=== PATIENT | female | born 1955 | race Caucasian/White ===

== ENCOUNTER 2025-02-10 12:21 | Inpatient (IN) ==
--- NOTE | 2025-02-10 12:45 | Emergency Department Note ---
Impression & Plan MARY (acute kidney injury), DVT (deep venous thrombosis), Hypokalemia, Hypomagnesemia, Hypocalcemia ED Provider Note CHIEF COMPLAINT: Fall HISTORY OF PRESENTING ILLNESS: The patient is a pleasant, 69-year-old female who arrives to the emergency department with her family member for evaluation of injuries from a ground-level fall last Thursday. Patient was seen at [facility], and diagnosed with hypokalemia however discharged after IV and oral potassium. Patient states she has pain to the right leg. She states she has bruising on the right thigh. She reports she is currently unable to bear weight, and she also feels weak. Patient reports in October she had 40 cm of her small bowel removed, and is now having a difficult time keeping her weight up. She reports she has been taking [id number] potassium supplements, however the pills are still whole when she notices them in her stool. She reports no chest pain, shortness of breath, fever, or abdominal pain. She denies head strike from the fall. She reports no anticoagulant use. REVIEW OF SYSTEMS: See HPI for pertinent positives and pertinent negatives. ALLERGIES: See below MEDICATIONS: See below PAST MEDICAL HISTORY: See below PHYSICAL EXAM: VITALS: Vitals are noted on the nurse's note and reviewed by myself. Vital signs stable. GENERAL: 69-year-old female, in no acute distress, nondiaphoretic, well- developed well-nourished. SKIN: Ecchymosis noted to the lateral aspect of the right thigh. Tenderness to palpation. HEAD: Normocephalic atraumatic. EARS: External auditory canals clear, tympanic membranes pearly ramirez without erythema or effusion bilaterally. No hemotympanum. EYES: Pupils equal round and reactive to light and accommodation. Conjunctivae without injection, sclerae without icterus. Extraocular movements intact. No nystagmus. NECK: Supple without nuchal rigidity. Cervical spine is nontender. No JVD. HEART: Regular rate and rhythm without murmurs gallops or rubs. LUNGS: Clear to auscultation bilaterally without wheezes, rales or rhonchi. No retractions or accessory muscle use. ABDOMEN: Positive bowel sounds x 4. Soft, nontender, without masses or organomegaly. Abrams sign negative. No guarding or rebound tenderness. MUSCULOSKELETAL: Tenderness to palpation lateral aspect of right thigh, with ecchymosis noted. Tenderness to palpation over the right greater trochanter. No tenderness to palpation over the lumbar spinous process. Full ROM, right hip, right knee. Positive right SLR. Sensation intact to dull and sharp. Strength 5/5. NEURO: Patient was alert and oriented to person place and time. No focal neurological deficits. DIFFERENTIAL DIAGNOSIS: Infection, dehydration, metabolic abnormality, hypo/hyperglycemia, electrolyte disturbance, anemia, hypoxia, cardiac sources, intracerebral event, toxicologic, neurologic, fracture, dislocation, as well as other pathologies. ED COURSE AND MEDICAL DECISION MAKING: HISTORY FROM INDEPENDENT HISTORIAN: Family member at bedside serving as secondary historian. MEDICATIONS GIVEN: NSS, infusion to 50 mL/h. Potassium chloride IVPB 10 mEq x 2, magnesium sulfate 1 g IVPB. MONITOR: Continuous cardiac nurse specialist: Order was placed for continuous cardiac nurse specialist. Patient was placed on the cardiac nurse specialist and continuous pulse ox. Patient was noted to be in normal sinus rhythm at an initial rate of 95 bpm per my interpretation. EKG: EKG was interpreted by myself as NSR at a rate of 74bpm with no acute signs of ischemia present. No previous for comparison. INTERPRETATION OF LABS: I interpreted the labs with full lab results as below in the lab section of this note. Pertinent lab results discussed in the MDM section below. INTERPRETATION OF IMAGING: Imaging studies were interpreted by myself and read by radiology as per the imaging section of this note. EXTERNAL RECORDS REVIEWED: [facility] visit CHRONIC MEDICAL/SOCIAL CONDITIONS AFFECTING CARE: Bowel resection, Crohn's disease, chronic hypokalemia. MDM SUMMARY: The patient is a pleasant, 69-year-old female who arrives to the emergency department for evaluation of the above-stated complaint. Saline lock was established, lab work was obtained. CBC shows no leukocytosis, with new anemia present. PT slightly elevated 12.4, INR 1.2. Potassium 2.9, BUN 26, creatinine 1.64, consistent with MARY. Hypocalcemia 7.3. Hypomagnesemia 1.5. Hip and pelvis x-ray imaging was obtained which per my interpretation shows no acute fracture. Lumbar spine x-ray imaging was obtained which shows mild scoliosis, osteopenic bones, most pronounced at L4-L5, with no acute fractures or subluxation. Ultrasound imaging of the right lower extremity was obtained to rule out DVT, which does show a likely acute DVT of the peroneal vein. Patient was provided continuous infusion of to 250 mL/h of normal saline, with 2 x 10 mEq potassium IVPB, as well as 1 g IVPB magnesium. Due to the patient's electrolyte abnormality, as well as acute DVT and inability to tolerate p.o. potassium, patient will require admission to the hospitalist services. Anticoagulation was deferred to the hospitalist. Patient was admitted to Dr. Singletary, from the [facility] hospitalist service. Please refer to her documentation for further patient workup and care. DIAGNOSIS: Hypokalemia, DVT, MARY, hypocalcemia, hypomagnesemia. The patient's case was discussed with Dr. Rodriguez, who agreed with my evaluation and treatment plan. The chart was completed utilizing [employer] voice recognition software. Grammatical errors, random word insertions, pronoun errors, and incomplete sentences are an occasional consequence of this system due to software limitations, ambient noise, and hardware issues. Any formal questions or concerns about the content, text, or information contained within the body of this dictation should be directly addressed to the provider for clarification. Past Med/Surg History Problem List (Updated 02/11/25 @ 18:10 by SIMRAN Irving) Hypocalcemia (Acute) Hypomagnesemia (Acute) DVT (deep venous thrombosis) (Acute) Short gut syndrome Malabsorption MARY (acute kidney injury) (Acute) Chronic malnutrition DVT (deep venous thrombosis) Dizziness Encounter for pre-operative examination Crohn's disease (Chronic) Abdominal pain (Acute) Diarrhea (Acute) History of Crohn's disease (Acute) Hypokalemia (Acute) Medical History Stage 3a chronic kidney disease (CKD) Barretts esophagus History of palpitations beginning 12/2021, chest pain, went to ER, did EKG, and there were no findings>attributed to her gallbladder History of COVID-19 end 11/2021, had test thru work; stuffy nose>resolved. History of anesthesia problem medications that are meant to make me tired/sleepy work opposite, they "make me wired" Hyperlipemia CD (Crohn's disease) Hypertension Surgical History Hx of laparoscopy w/LT oophorectomy Hx of colectomy in the late , had 10" bowel removed due to Crohn's History of esophagogastroduodenoscopy (EGD) Hx of colonoscopy Hx of tonsillectomy Social History Smoking Status: Current every day smoker Tobacco Type: Cigarettes Cigarettes Per Day: half pack; Second Hand Exposure: No; Do You Dip or Chew Tobacco: No; Hx Alcohol Use: No Hx Substance Use: No Preferred Language: Telugu Communication Ability: 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 Beliefs That Will Affect Care: None Current Living Situation: Spouse Current Living Situation Comment: home with , one story home Other Information That Helps Us Care for You: No Feels Safe at Home: Yes Safety Concerns: Feels Safe At This Time Assistive Devices: Denture - Upper, Glasses and Hearing Aid - Bilateral Allergies Allergies Allergy/AdvReac Type Severity Reaction Status Date / Time hydromorphone AdvReac Intermediate shaky, Unverified 02/10/25 15:01 cold sweats, "loopy-like" Home Meds Home Medications Medication Instructions Recorded Confirmed multivitamin with minerals 1 tab PO QAM 02/05/22 02/10/25 (Multiple Vitamin-Minerals tablet) pantoprazole 40 mg tablet,delayed 40 mg PO QAM 02/05/22 02/10/25 release (Protonix) potassium chloride 20 mEq 20 meq PO QAM 02/05/22 02/10/25 tablet,extended release(part/cryst) aspirin 325 mg tablet 325 mg PO UD 02/10/25 02/10/25 potassium chloride 20 mEq/15 mL 0 meq PO UD 02/10/25 02/10/25 oral liquid rosuvastatin 20 mg tablet 20 mg PO DAILY 02/10/25 02/10/25 Results & Data (ED) Vital Signs Vital Signs - 24 hr 02/10/25 12:34 Temperature 36.6 C Temperature Source Temporal Artery Scan Pulse Rate 95 H Respiratory Rate 18 Respiratory Effort / Characteristics Non-Labored Spontaneous Respiratory Depth Normal Respiratory Pattern Regular Blood Pressure 137/76 Blood Pressure Mean 96 Pulse Oximetry 97 Oxygen Delivery Method Room Air Sepsis Recent Fever Within 48 Hours No Sepsis New/Unexplained Change in Mental Status N/A Sepsis Action Taken by Nursing No Action Required Home Medications Current Medication List: was personally reviewed by me Laboratory Data Attestation: I reviewed the patient's lab results. 02/11/25 02:55 02/11/25 02:55 Lab Results 02/10/25 02/10/25 Range/Units 13:14 14:47 WBC 6.76 (4.8-10.8) K/ul RBC 3.57 L (4.20-5.40) M/uL Hgb 10.4 L (12.0-16.0) g/dl POC Hgb 12.2 (12.0-16.0) g/dl Hct 31.3 L (37.0-47.0) % POC Hct 36 L (37-47) % MCV 87.7 (80.0-100.0) fL MCH 29.1 (25.0-34.0) pg MCHC 33.2 (32.0-36.0) g/dL RDW Std Deviation 55.5 H (36.4-46.3) fL RDW Coeff of Bell 17.3 H (11.5-14.5) % Plt Count 257 (130-400) K/uL MPV 9.1 L (9.4-12.4) fL Immature Gran % (Auto) 0.4 % Neut % (Auto) 67.6 % Lymph % (Auto) 23.2 % [place] % (Auto) 7.5 % Eos % (Auto) 0.7 % Baso % (Auto) 0.6 % Neut # (Auto) 4.56 (1.40-6.50) K/uL Lymph # (Auto) 1.57 (1.20-3.40) K/uL [place] # (Auto) 0.51 (0.11-0.59) K/uL Eos # (Auto) 0.05 (0.00-0.50) K/uL Baso # (Auto) 0.04 (0.00-0.20) K/uL Immature Gran # (Auto) 0.03 (0.01-0.20) K/uL PT 12.4 H (9.0-12.0) Seconds INR 1.2 H (0.9-1.1) APTT 31 (21-31) Seconds PTT Ratio 1.1 POC Sodium 136 (135-144) mmol/L Sodium 137 (136-145) mmol/L POC Potassium 2.9 L (3.3-5.0) mmol/L Potassium 3.2 L (3.5-5.1) mmol/L POC Chloride 106 (101-112) mmol/L Chloride 109 H (98-107) mmol/L Carbon Dioxide 20 L (21-32) mmol/L POC Total CO2 18 L (24-31) mmol/L Anion Gap 8 (3-11) POC Anion Gap 16.0 (16-25) mmol/L POC BUN 24 H (7-18) mg/dl BUN 26 H (6-23) mg/dl Creatinine 1.64 H (0.6-1.2) mg/dl POC Creatinine 2.0 H (0.6-1.3) mg/dl Est Cr Clr Drug Dosing Not Reportable eGFR 34.10 BUN/Creatinine Ratio 15.9 (10-20) Glucose 79 (70-99(Fasting)) mg/dl POC Glucose (other) 98 (70-99) mg/dl Calcium 7.3 L (8.6-10.3) mg/dl POC Ioniz Calcium Karly 1.12 (1.12-1.32) mmol/l Magnesium 1.5 L (1.7-2.4) mg/dl Total Bilirubin 0.2 (0.2-1.0) mg/dl AST 24 (13-39) U/L ALT 34 (7-52) U/L Alkaline Phosphatase 163 H (34-104) U/L Total Protein 4.6 L (6.0-8.3) gm/dl Albumin 1.7 L (3.4-5.0) gm/dl Globulin 2.9 (2.5-4.0) gm/dl Albumin/Globulin Ratio 0.6 L (0.9-2) Administered Medications Enoxaparin Sodium (Enoxaparin Inj 60 Mg/0.6 Ml Syr) 50 mg SQ Q12H JAMAL Stop: 03/13/25 07:59 Last Admin: 02/11/25 11:07 Dose: Not Given Documented By: PEDIATRIC ASSISTANT Loperamide HCl (Loperamide Liquid 120 Ml Bottle) 2 mg PO BID JAMAL Stop: 03/13/25 11:44 Last Admin: 02/11/25 13:40 Dose: 2 mg Documented By: MONE Multivitamins/Minerals (Cerovite Adv Formula Tab) 1 tab PO QAM JAMAL Stop: 03/13/25 08:59 Last Admin: 02/11/25 10:37 Dose: 1 tab Documented By: DAMIAN Rosuvastatin Calcium (Rosuvastatin Calcium 20 Mg Tab) 20 mg PO DAILY JAMAL Stop: 03/13/25 08:59 Last Admin: 02/11/25 11:07 Dose: Not Given Documented By: DAMIAN Discontinued Medications Aspirin (Aspirin 81 Mg Chew) 162 mg PO NOW STA Stop: 02/10/25 22:47 Last Admin: 02/11/25 00:18 Dose: 162 mg Documented By: GOPI Aspirin (Aspirin 81 Mg Chew) 162 mg PO ONCE ONE Stop: 02/11/25 10:45 Last Admin: 02/11/25 10:56 Dose: 162 mg Documented By: DAMIAN Heparin Sodium (Porcine) (Heparin Sod (Porcine) 1000 Unit/Ml) 2,000 units IV NOW ONE Stop: 02/11/25 04:46 Last Admin: 02/11/25 04:55 Dose: 2,000 units Documented By: GOPI Co-signed By: MADELYN Heparin Sodium/Dextrose (Heparin Iv Adult Wt-Based Low-Dose *No* Initial Bolus Protocol) 1 each IV ONE STA; Protocol Stop: 02/10/25 17:18 Last Admin: 02/10/25 20:36 Dose: 1 each Documented By: GOPI Potassium Chloride (K Pascual / Wtr) 10 meq in 100 mls @ 100 mls/hr IV Q1H JAMAL Stop: 02/10/25 15:29 Last Infusion: 02/10/25 17:17 Dose: Infused Documented By: Admin: 02/10/25 15:32 Dose: 100 mls/hr Documented By: Infusion: 02/10/25 15:29 Dose: Infused Documented By: Admin: 02/10/25 14:14 Dose: 100 mls/hr Documented By: XENA Sodium Chloride (Nss) 1,000 mls @ 250 mls/hr IV .Q4H JAMAL Stop: 02/13/25 13:29 Last Admin: 02/11/25 07:56 Dose: Not Given Documented By: Infusion: 02/11/25 07:56 Dose: Infused Documented By: Admin: 02/11/25 04:38 Dose: 250 mls/hr Documented By: Infusion: 02/11/25 04:18 Dose: Infused Documented By: Admin: 02/11/25 00:18 Dose: 250 mls/hr Documented By: Infusion: 02/11/25 00:18 Dose: Infused Documented By: Admin: 02/10/25 20:19 Dose: 250 mls/hr Documented By: Infusion: 02/10/25 19:55 Dose: Infused Documented By: Admin: 02/10/25 14:13 Dose: 250 mls/hr Documented By: XENA Magnesium Sulfate/Dextrose (Magnesium Sulfate / D5w) 1 gm in 100 mls @ 100 mls/hr IV Q1H JAMAL Stop: 02/10/25 17:40 Last Admin: 02/10/25 22:12 Dose: Not Given Documented By: Infusion: 02/10/25 19:44 Dose: Infused Documented By: Admin: 02/10/25 17:44 Dose: 100 mls/hr Documented By: NICKI Heparin Sodium/Dextrose (Heparin 58023 Unit/500 Ml D5w) 25,000 units in 500 mls @ 14 mls/hr IV .Q24H JAMAL; Protocol Stop: 03/12/25 17:44 Last Titration: 02/11/25 07:57 Dose: Infused Documented By: MONE Co-signed By: anitra Titration: 02/11/25 07:09 Dose: 700 units/hr, 14 mls/hr Documented By: GOPI Co-signed By: MONE Titration: 02/11/25 04:55 Dose: 700 units/hr, 14 mls/hr Documented By: GOPI Co-signed By: MADELYN Admin: 02/10/25 20:34 Dose: 600 units/hr, 12 mls/hr Documented By: GOPI Co-signed By: MADELYN Potassium Chloride (K Pascual / Wtr) 10 meq in 100 mls @ 100 mls/hr IV Q1H JAMAL Stop: 02/10/25 19:29 Last Infusion: 02/10/25 21:02 Dose: Infused Documented By: Admin: 02/10/25 19:58 Dose: 100 mls/hr Documented By: Infusion: 02/10/25 19:55 Dose: Infused Documented By: Admin: 02/10/25 17:45 Dose: 100 mls/hr Documented By: NICKI Magnesium Sulfate/Dextrose (Magnesium Sulfate / D5w) 1 gm in 100 mls @ 100 mls/hr IV Q1H JAMAL Stop: 02/10/25 22:44 Last Admin: 02/10/25 22:12 Dose: Not Given Documented By: Infusion: 02/10/25 22:12 Dose: Infused Documented By: Admin: 02/10/25 21:06 Dose: 100 mls/hr Documented By: GOPI Thiamine HCl 100 mg/ Syringe 10 mls @ 2 mls/min IV NOW STA Stop: 02/11/25 11:38 Last Admin: 02/11/25 13:41 Dose: 2 mls/min Documented By: MONE Oxycodone HCl (Oxycodone Hcl Ir 5 Mg Tab (Immediate Release)) 5 mg PO NOW STA Stop: 02/10/25 22:22 Last Admin: 02/11/25 00:02 Dose: Not Given Documented By: GOPI Pantoprazole Sodium (Pantoprazole 40 Mg Tab) 40 mg PO QAM JAMAL Stop: 03/13/25 08:59 Last Admin: 02/11/25 10:38 Dose: 40 mg Documented By: DAMIAN Discharge Plan Visit Data Chief Complaint: Leg Injury/Pain Stated Complaint: RT LEG NUMB, RECENT FALL, LIGHTHEADED ED Provider: Dia Rodriguez ED Midlevel Provider: Caty Patel Discharge Problem: MARY (acute kidney injury), DVT (deep venous thrombosis), Hypokalemia, Hypomagnesemia, Hypocalcemia Patient Disposition: Admitted As Inpatient Condition: Fair Discharge Instructions Interventions: ED Discharge Assessment Last Done: 02/10/25 18:44
--- NOTE | 2025-02-10 13:03 | Emergency Department Note ---
ED Visit Note I was consulted by the Advanced Practice Provider, SIMRAN Linares. I performed a substantive portion of the visit. This includes aspects of: History: Patient is a 69-year-old female presenting with right leg pain. She fell 6 days ago and landed on her right thigh. She states that this morning she has been unable to bear weight. She is not clear. Hospital yesterday secondary to shortness of breath and had a VQ scan which was negative for PE. She is complaining of pain in the right leg. MDM: - Laboratory workup interpreted by myself showed normal WBC; hypokalemia (K 3.2); hypomagnesemia (Mg 1.5); MARY (Cr 1.64) - Xray lumbar spine negative for acute pathology other than scoliosis and degenerative changes. - Xray right hip and pelvis views negative for acute fracture. - US RLE showed acute DVT of the peroneal vein. - Patient given IV potassium and IV magnesium for electrolyte replacements in the ER. - Patient to be admitted to medicine service for further evaluation and management
--- NOTE | 2025-02-10 13:54 | XRay Report ---
XR lumbar spine min 4V routine CLINICAL HISTORY: Pain status post trauma COMPARISON STUDY: No previous studies for comparison. FINDINGS: There is a mild scoliosis. Bones are osteopenic. No acute fractures are visualized. There a re degenerative changes with marked disc space narrowing at the L4-5 level. There is lower lumbar fac et joint arthropathy. Note is made of atherosclerotic aortoiliac calcifications. There is no patholog ic bowel dilatation. There are surgical clips within the right upper quadrant consistent with a prior cholecystectomy. IMPRESSION: Scoliosis and degenerative changes most pronounced at the L4-5 level. No acute fractures or subluxations identified ACT 112: Negative or not required by law. Electronically signed by: Stepan Chow M.D. 02/10/2025 1:52 PM
[2025-02-10] MEDS: SODIUM CHLORIDE 0.9% 1,000 ML IV SCH (14:13)
[2025-02-10] MEDS: POTASSIUM CHLORIDE / WTR 10 MEQ/100 ML PLCT IV SCH ×2 (14:14→17:45)
--- NOTE | 2025-02-10 14:16 | XRay Report ---
XR hip RT 2V w pelvis HISTORY: 69 years-old Female fall acute pelvic pain status post fall COMPARISON: CT abdomen and pelvis 11/28/2024 TECHNIQUE: AP view the pelvis with 2 views of the right hip FINDINGS: Mild osteoarthritis of the hips. No acute fracture, dislocation or avascular necrosis. Arterial calci fications noted. IMPRESSION: No acute fracture. ACT 112: Negative or not required by law. The above report was generated using voice recognition software. It may contain grammatical, syntax o r spelling errors. Electronically signed by: Dominic Thompson M.D. 02/10/2025 2:15 PM
--- NOTE | 2025-02-10 14:28 | Ultrasound Report ---
US venous doppler LE RT HISTORY: 69 years-old Female r/o dvt acute pain and swelling of the right lower leg COMPARISON: None TECHNIQUE: Multiple real-time sonographic images of the right lower extremity deep venous structures were obtained assessing grayscale appearance, color and spectral flow. FINDINGS: Thrombus noted within one of the duplicated peroneal veins which is occlusive and extends for length of at least 6 cm. No additional deep or superficial venous thrombi identified. IMPRESSION: Likely acute DVT of the peroneal vein. ACT 112: Negative or not required by law. The above report was generated using voice recognition software. It may contain grammatical, syntax o r spelling errors. Electronically signed by: Dominic Thompson M.D. 02/10/2025 2:26 PM
--- NOTE | 2025-02-10 15:07 | History & Physical Report ---
Date of Service February 10, 2025 Assessment & Plan (1) Dizziness: Plan: Patient is a 69 year old F with a past medical history of Crohn's s/p bowel resection 10/2024 w/ 40 cm bowel removed, nutritional deficiency, hypokalemia, presenting with right leg pain. Symptoms began this morning with leg numbness. Patient has had multiple ground level falls recently, and is unaware of why she is falling. Denies dizziness and chest pain prior to the fall. Patient went to [facility] yesterday for dizziness and found to have hypokalemia, replaced with IV supplementation and d/c to home with oral supplementation. Unable to tolerate oral K+ supplemental given. Negative CT imaging at [facility] yesterday for dizziness workup. Since falling 1 week ago having parathesias throughout the right leg. Dizziness, unknown etiology * Admit to [facility] for additional workup * Dizziness with falls, patient unaware of why she falls, no chest pain * EKG showing NSR, vent rate 74 bpm, QTc 412 w/ possible septal infarct per report * Electrolyte imbalances noted; see below * Reportedly has history aortic stenosis and was started on statin w/ no cardiology followup; Will obtain Echo for r/o cardiac causes of symptoms- pending * Tele monitoring * Anemia workup pending->Hgb 10.4 with no active bleeding * Has history of losartan treatment for hypertension and has been placed on hold for hypotension; follows [facility] pharmacy for periodic medication review per patient's daughter; BP 120's /70's * PT consult when able * Discharge planning: Anticipate d/c to home with family support #Electrolyte imbalances * Hypokalemia at [facility] yesterday 2.7 w/ low mag as well; replacement given and d/c to home with oral supplement; patient w/ absorption issue with excretion of whole pill unchanged * Potassium 2.9; replaced with K-Pascual x 3; repeat labs at 9pm and in the morning * Magnesium 1.5 and replaced with 2gm Mag Sulfate; repeat labs at 9pm and in the morning * Trend labs and replace as needed #DVT * Venous doppler showing occlusive thrombus to peroneal veins extends for length of at least 6 cm * Low dose heparin drip started * Likely transition to Eliquis-> can discuss with Dr. Armijo #MARY w/ history of CKD Stage III * Baseline creatinine 1.2 prior surgery; trending up since * Creatinine 1.64 today possible relating to low oral intake * IV fluids NSS 125 ml/hr started * Will trend labs #Hyperlipidemia * Continue home statin #Chronic malnourishment * Endorses ~20 pound weight loss since bowel resection in October 2024 with possible absorption concerns; reports loose bowel movements following eating * Albumin 1.7 * Nutrition consult placed * GI consult placed for absorption concerns, history Crohn's not currently on mesalamine; has been on mesalamine in the past but excreted medication unchanged DVT Ppx: Heparin Code status: Full PCP: Dr. Griffin Dispo: Admit Patient seen in collaboration with Dr. Singletary. Please see addendum.I spent a total of 70 minutes coordinating, documenting and providing care for this patient excluding time spent in the performance of separately billed services or time spent by another provider/QHP. (2) Hypokalemia: (3) DVT (deep venous thrombosis): (4) Hyperlipemia: (5) MARY (acute kidney injury): (6) Stage 3a chronic kidney disease (CKD): (7) Chronic malnutrition: History of Present Illness Chief Complaint: Fall, leg pain Primary Care Provider: Henry Griffin MD Patient is a 69 year old F with a past medical history of Crohn's s/p bowel resection 10/2024 w/ 40 cm bowel removed, nutritional deficiency, hypokalemia, presenting with right leg pain. Symptoms began this morning with leg numbness. Patient has had multiple ground level falls recently, and is unaware of why she is falling. Denies dizziness and chest pain prior to the fall. Patient went to [facility] yesterday for dizziness and found to have hypokalemia, replaced with IV supplementation and d/c to home with oral supplementation. Unable to tolerate oral K+ supplemental given. Negative CT imaging at [facility] yesterday for dizziness workup. Since falling 1 week ago having parathesias throughout the right leg. Denies fever, chills, weight loss, weakness, headache, cognitive changes, vision/hearing changes, chest pain, SOB, swelling, difficulty breathing, urinary concerns, N/V/D, joint swelling/pain, ambulation difficulty, skin rashes, lesions, bleeding, bruising. In the emergency department, patient was hemodynamically stable with no signs of infection sepsis. NAD. Hypokalemia noted on lab workup with Potassium 2.9 and replaced with 20 meq KCL. EKG showing NSR with no evidence ST elevation, vent rate 74 bpm, QTc 412. Venous doppler showed thrombus noted within one of the duplicated peroneal veins which is occlusive and extends for length of at least 6 cm. Lumbar Spine Xray showed Scoliosis and degenerative changes most pronounced at the L4-5 level. No acute fractures or subluxations identified Patient is s/p ileoscolic resection/kono-S for symptomatic Crohn's disease. As per outside record, patient has been doing very well after surgery and progressing as expected. Patient's daughter reports low intake, 20 pound weight loss with an upcoming nutrition appointment in March. Patient is supposed to be taking mesalamine but has been excreting this medication whole. Patient's daughter is concerned for dumping syndrome. She does not have nausea or vomiting. Loose stools after each meal. Has become progressively weaker since surgery and feels this is due to malnutrition. Follows [facility]. History of hypertension and was managed on losartan prior to recent bowel resection. This was stopped after the surgery for hypotension and has not resumed. BP stable here. History obtained primarily from the patient and via hospitalization record. The patient's family was at the bedside and assisted with past medical history and history of present illness. External chart review obtained from [facility]. Allergies Allergy/AdvReac Type Severity Reaction Status Date / Time hydromorphone AdvReac Intermediate shaky, Unverified 02/10/25 15:01 cold sweats, "loopy-like" Home Medications Medication Instructions Recorded Confirmed Type multivitamin with minerals 1 tab PO QAM 02/05/22 02/10/25 History (Multiple Vitamin-Minerals tablet) pantoprazole 40 mg tablet,delayed 40 mg PO QAM 02/05/22 02/10/25 History release (Protonix) potassium chloride 20 mEq 20 meq PO QAM 02/05/22 02/10/25 History tablet,extended release(part/cryst) aspirin 325 mg tablet 325 mg PO UD 02/10/25 02/10/25 History potassium chloride 20 mEq/15 mL 0 meq PO UD 02/10/25 02/10/25 History oral liquid rosuvastatin 20 mg tablet 20 mg PO DAILY 02/10/25 02/10/25 History Past Med/Surg History Problem List (Updated 02/10/25 @ 19:53 by SIMRAN Gonzalez) MARY (acute kidney injury) Chronic malnutrition DVT (deep venous thrombosis) Dizziness Encounter for pre-operative examination Crohn's disease (Chronic) Abdominal pain (Acute) Diarrhea (Acute) History of Crohn's disease (Acute) Hypokalemia (Acute) Medical History (Updated 02/10/25 @ 19:53 by SIMRAN Gonzalez) Stage 3a chronic kidney disease (CKD) Barretts esophagus History of palpitations beginning 12/2021, chest pain, went to ER, did EKG, and there were no findings>attributed to her gallbladder History of COVID-19 end 11/2021, had test thru work; stuffy nose>resolved. History of anesthesia problem medications that are meant to make me tired/sleepy work opposite, they "make me wired" Hyperlipemia CD (Crohn's disease) Hypertension Surgical History Hx of laparoscopy w/LT oophorectomy Hx of colectomy in the late , had 10" bowel removed due to Crohn's History of esophagogastroduodenoscopy (EGD) Hx of colonoscopy Hx of tonsillectomy Social History Smoking Status: Current every day smoker Tobacco Type: Cigarettes Cigarettes Per Day: 5; Second Hand Exposure: No; Do You Dip or Chew Tobacco: No; Hx Alcohol Use: Yes Alcohol type: hard liquor Hx Substance Use: No Preferred Language: Libyan Communication Ability: Effective Set Up Worker Required: No Beliefs That Will Affect Care: None Current Living Situation: Spouse Feels Safe at Home: Yes Assistive Devices: Denture - Upper and Glasses Review of Systems Review of Systems: All systems reviewed & are unremarkable except as noted in HPI & below Physical Exam Physical Exam: VITALS: Reviewed. WEIGHT/BMI reviewed. GEN: Thin, well-developed, NAD. PSYCH: Good Judgment. AOx3. Normal memory, mood, and affect. HEENT -Head: NC/AT; -Eyes: PERRL, EOMI. No discharge or redn ess; -Ears: External ears are normal. -Nose: Normal nares. -Mouth and throat: MMM. Normal gums, muc farhana, palate,. Good dentition. NECK: Supple, with no masses. CV: RRR, no m/r/g. LUNGS: CTAB, no w/r/c. ABD: Soft, NT/ND, NBS, no masses or organomegaly. : N/A SKIN: Warm, well perfused. Large purple bruise to right thigh. multiple lacerations to legs. MSK: No deformities, Normal gait. EXT: No clubbing, cyanosis, or edema. NEURO: Ambulating with w/ assistance. Normal muscle strength and tone. No focal deficits. Results & Data Results & Data Vital Signs (Past 12 Hours) Vital Signs Temp Pulse Pulse Resp BP BP Pulse Ox 02/10/25 14:33 74 14 124/86 100 02/10/25 12:34 36.6 C 95 H 18 137/76 97 O2 Del Method 02/10/25 14:33 Room Air 02/10/25 12:34 Room Air Diagnostic Findings Hip/Pelvis X-Ray 02/10/25 13:01 XR hip RT 2V w pelvis HISTORY: 69 years-old Female fall acute pelvic pain status post fall COMPARISON: CT abdomen and pelvis 11/28/2024 TECHNIQUE: AP view the pelvis with 2 views of the right hip FINDINGS: Mild osteoarthritis of the hips. No acute fracture, dislocation or avascular necrosis. Arterial calcifications noted. IMPRESSION: No acute fracture. ACT 112: Negative or not required by law. The above report was generated using voice recognition software. It may contain grammatical, syntax or spelling errors. Electronically signed by: Dominic Thompson M.D. 02/10/2025 2:15 PM Lumbar Spine X-Ray 02/10/25 13:01 XR lumbar spine min 4V routine CLINICAL HISTORY: Pain status post trauma COMPARISON STUDY: No previous studies for comparison. FINDINGS: There is a mild scoliosis. Bones are osteopenic. No acute fractures are visualized. There are degenerative changes with marked disc space narrowing at the L4-5 level. There is lower lumbar facet joint arthropathy. Note is made of atherosclerotic aortoiliac calcifications. There is no pathologic bowel dilatation. There are surgical clips within the right upper quadrant consistent with a prior cholecystectomy. IMPRESSION: Scoliosis and degenerative changes most pronounced at the L4-5 level. No acute fractures or subluxations identified ACT 112: Negative or not required by law. Electronically signed by: Stepan Chow M.D. 02/10/2025 1:52 PM Venous Doppler Study 02/10/25 13:01 US venous doppler LE RT HISTORY: 69 years-old Female r/o dvt acute pain and swelling of the right lower leg COMPARISON: None TECHNIQUE: Multiple real-time sonographic images of the right lower extremity deep venous structures were obtained assessing grayscale appearance, color and spectral flow. FINDINGS: Thrombus noted within one of the duplicated peroneal veins which is occlusive and extends for length of at least 6 cm. No additional deep or superficial venous thrombi identified. IMPRESSION: Likely acute DVT of the peroneal vein. ACT 112: Negative or not required by law. The above report was generated using voice recognition software. It may contain grammatical, syntax or spelling errors. Electronically signed by: Dominic Thompson M.D. 02/10/2025 2:26 PM Supervising Physician Co-Signing Physician Notes Pt seen and examined by nd care coordinated w/ M. SIMRAN Abrams, pls refer to her note above for further detail. Pt is a 69 yo F with history of Crohn's s/p bowel resection 10/2024 w/ 40 cm bowel removed, nutritional deficiency, hypokalemia, presenting with right leg pain. Patient has had multiple ground level falls recently, and is unaware of why she is falling.Denies loss of consciousness, remembers the fall. Denies dizziness or chest pain prior to the fall but feels uncertain. In the emergency department, patient was hemodynamically stable with no signs of infection sepsis. NAD. Hypokalemia noted on lab workup with Potassium 2.9., Mag 1.5. EKG showing NSR with no evidence ST elevation, vent rate 74 bpm, QTc 412. Cr elevated at 1.6. Venous doppler showed thrombus noted within one of the duplicated peroneal veins which is occlusive and extends for length of at least 6 cm. Currently pt is lying in bed in NAD, she is awake, alert, able to provide hx, pt's daughter present at the bedside and also provides additional hx. Breath sounds decreased. heart sounds regular, abdomen soft, nontender. Ecchymosis noted over right LE thigh. Pt is moving extremities. Will replace electrolytes, provide IVF and will re-check BMP. Will cont. to closely monitor on tele, plan to obtain echo as above. Started low dose heparin iv for peroneal vein thrombus - monitor leg pain/ numbness, further can discuss poss. anticoag. w/ Dr. Armijo or heme prior to DC. Hx of Crohn's s/p surgery, malnutrition, will further consult with steak sauce maker and GI. MD Gemini
[2025-02-10 15:19] LABS: Hematocrit (blood only) 31.3 % (37.0-47.0); Hemoglobin 10.4 g/dl (12.0-16.0); Immature Granulocytes # (auto) 0.03 K/uL (0.01-0.20); Immature Granulocytes % (auto) 0.4 %; Mean Corpuscular Hemoglobin 29.1 pg (25.0-34.0); Mean Corpuscular Volume 87.7 fL (80.0-100.0); Platelet Count 257 K/uL (130-400); RDW Standard Deviation 55.5 fL (36.4-46.3); Red Blood Count 3.57 M/uL (4.20-5.40); White Blood Count 6.76 K/ul (4.8-10.8)
[2025-02-10 15:37] LABS: Alanine Aminotransferase 34 U/L (7-52); Albumin Globulin Ratio 0.6 (0.9-2); Albumin Level 1.7 gm/dl (3.4-5.0); Alkaline Phosphatase 163 U/L (34-104); Anion Gap 8 (3-11); Bilirubin,Total 0.2 mg/dl (0.2-1.0); Blood Urea Nitrogen 26 mg/dl (6-23); Calcium 7.3 mg/dl (8.6-10.3); Carbon Dioxide 20 mmol/L (21-32); Chloride 109 mmol/L (98-107); Globulin 2.9 gm/dl (2.5-4.0); Glucose 79 mg/dl (70-99(Fasting)); Magnesium 1.5 mg/dl (1.7-2.4); Potassium 3.2 mmol/L (3.5-5.1); Sodium 137 mmol/L (136-145); Total Protein 4.6 gm/dl (6.0-8.3)
[2025-02-10 15:46] LABS: INR 1.2 (0.9-1.1); Partial Thromboplastin Time 31 Seconds (21-31); Prothrombin Time 12.4 Seconds (9.0-12.0)
[2025-02-10] MEDS ORDERED: POTASSIUM CHLORIDE CRTAB 20 MEQ TABCR PO SCH (17:30)
[2025-02-10] MEDS: MAGNESIUM SULFATE / D5W 1 GM/100 ML BAG IV SCH ×2 (17:44→21:06)
[2025-02-10] MEDS ORDERED: MAGNESIUM HYDROXIDE SUSP 30 ML UDC PO PRN (18:26)
[2025-02-10] MEDS ORDERED: ALUMINUM/MAGNESIUM SUSP 30 ML UDC PO PRN (18:26)
--- NOTE | 2025-02-10 19:21 | Electrocardiogram Report ---
Test Reason : Blood Pressure : */* mmHG Vent. Rate : 74 BPM Atrial Rate : 74 BPM P-R Int : 132 ms QRS Dur : 52 ms QT Int : 372 ms P-R-T Axes : 56 39 43 degrees QTcB Int : 412 ms Normal sinus rhythm Possible Septal infarct , age undetermined Abnormal ECG When compared with ECG of 27-Aug-2014 21:47, Nonspecific T wave abnormality is no longer Present Septal infarct is now Present Confirmed by Anant Byers ([id number]) on 02/10/2025 7:20:59 PM Referred By: REFERRED SELF Confirmed By: Anant Byers
[2025-02-10] MEDS ORDERED: Nursing to Pharmacy Communication SCH (20:30)
[2025-02-10] MEDS: HEPARIN 25000 UNIT/500 ML D5W 25,000 UNITS/500 ML BAG IV SCH (20:34)
[2025-02-10] MEDS: Heparin IV Adult Wt-Based Low-Dose *NO* INITIAL Bolus Protocol IV STA (20:36)
[2025-02-10 21:11] LABS: Hematocrit (blood only) 31.0 % (37.0-47.0); Hemoglobin 10.5 g/dl (12.0-16.0); Mean Corpuscular Hemoglobin 29.7 pg (25.0-34.0); Mean Corpuscular Volume 87.8 fL (80.0-100.0); Platelet Count 239 K/uL (130-400); RDW Standard Deviation 56.2 fL (36.4-46.3); Red Blood Count 3.53 M/uL (4.20-5.40); Reticulocytes # 0.050 10^6/uL (0.020-0.100); White Blood Count 6.41 K/ul (4.8-10.8)
[2025-02-10 21:28] LABS: Anion Gap 6 (3-11); Blood Urea Nitrogen 22 mg/dl (6-23); Calcium 6.9 mg/dl (8.6-10.3); Carbon Dioxide 18 mmol/L (21-32); Chloride 113 mmol/L (98-107); Creatinine Clr Calc Pharmacy 29.9 ml/min; Glucose 88 mg/dl (70-99(Fasting)); Potassium 3.5 mmol/L (3.5-5.1); Sodium 137 mmol/L (136-145)
[2025-02-10 21:46] LABS: Iron 25 mcg/dl (35-150); Magnesium 1.8 mg/dl (1.7-2.4); Transferrin < 95 mg/dl (200-360)
[2025-02-10 21:47] LABS: Ferritin 211.2 ng/ml (8-388)
[2025-02-10 21:53] LABS: Folate (Folic Acid),Ser orPlas 9.79 ng/ml (>5.38)
[2025-02-10 21:54] LABS: Vitamin B12 399.0 pg/ml (180-914)
[2025-02-10 23:15] LABS: ALC (manual) 1.79 K/uL (1.2-3.4); ANC (manual) 4.04 K/uL (1.4-6.5); Polychromasia 1+
[2025-02-11] MEDS: ASPIRIN 81 MG CHEW PO STA (00:18)
[2025-02-11 03:14] LABS: Hematocrit (blood only) 27.1 % (37.0-47.0); Hemoglobin 9.5 g/dl (12.0-16.0); Mean Corpuscular Hemoglobin 30.5 pg (25.0-34.0); Mean Corpuscular Volume 87.1 fL (80.0-100.0); Platelet Count 227 K/uL (130-400); RDW Standard Deviation 55.9 fL (36.4-46.3); Red Blood Count 3.11 M/uL (4.20-5.40); White Blood Count 4.42 K/ul (4.8-10.8)
[2025-02-11 03:28] LABS: Anion Gap 5.0 (3-11); Blood Urea Nitrogen 19.0 mg/dl (6-23); Calcium 6.5 mg/dl (8.6-10.3); Carbon Dioxide 17.0 mmol/L (21-32); Chloride 116.0 mmol/L (98-107); Creatinine Clr Calc Pharmacy 34.6 ml/min; Glucose 69.0 mg/dl (70-99(Fasting)); Magnesium 1.9 mg/dl (1.7-2.4); Potassium 3.4 mmol/L (3.5-5.1); Sodium 138.0 mmol/L (136-145)
[2025-02-11 03:38] LABS: ANTI-Xa, UFH(UnfractionatedHep 0.18 IU/ml (0.3-0.7)
[2025-02-11] MEDS: HEPARIN SOD (PORCINE) 1000 UNIT/ML IV ONE (04:55)
[2025-02-11] MEDS ORDERED: ENOXAPARIN 1 MG/KG SC SCH (07:45)
--- NOTE | 2025-02-11 10:26 | Magnetic Resonance Report ---
Clinical History: Episode of right leg numbness. Technique: Multiple T1 and T2-weighted magnetic resonance images were obtained of the brain without gadolinium contrast Findings: There is no sign of acute or old infarction with normal-appearing diffusion weighted images. No definite focus of demyelination is seen. No definite mass lesion is seen on this noncontrast study. There is no intracranial hemorrhage or other fluid collection. No midline shift or other form of herniation is seen. There is no hydrocephalus. Normal flow-voids are seen within the arteries of the [id number]-Gfloda. The orbits appear unremarkable. There is mucosal thickening in the right sphenoid sinus. The mastoid air cells appear clear. Impression: 1. Normal-appearing brain 2. Chronic sinusitis Electronically signed by Alexandru Sibley 02-11-2025 10:26 AM
[2025-02-11] MEDS: ROSUVASTATIN CALCIUM 20 MG TAB PO SCH (10:37)
[2025-02-11] MEDS: CEROVITE ADV FORMULA TAB PO SCH (10:37)
[2025-02-11] MEDS: ASPIRIN 81 MG CHEW PO ONE (10:56)
[2025-02-11] MEDS: ENOXAPARIN INJ 60 MG/0.6 ML SYR SQ SCH (11:07)
--- NOTE | 2025-02-11 11:14 | Hospitalist Progress Note ---
Date of Service February 11, 2025 Assessment & Plan (1) Dizziness: Plan: Patient is a 69 year old F with a past medical history of Crohn's s/p bowel resection 10/2024 w/ 40 cm bowel removed, nutritional deficiency, hypokalemia, presenting with right leg pain. Symptoms began this morning with leg numbness. Patient has had multiple ground level falls recently, and is unaware of why she is falling. Denies dizziness and chest pain prior to the fall. Patient went to [facility] yesterday for dizziness and found to have hypokalemia, replaced with IV supplementation and d/c to home with oral supplementation. Unable to tolerate oral K+ supplemental given. Negative CT imaging at [facility] yesterday for dizziness workup. Since falling 1 week ago having parathesias throughout the right leg. Dizziness Right leg weakness Hypokalemia Hypomagnesemia Patient presents with recurrent falls; reports that her right leg gives out at times. CT head in [facility] acute finding Plan to obtain MRI brain obtained to rule out subacute stroke; no acute finding Obtain echocardiogram Continue telemonitoring; will benefit from Zio patch as outpatient PT OT evaluation Continue to hold antihypertensives. Replete electrolytes Acute DVT of right peroneal veinwas started on heparin; switched over to Lovenox. Plan to transition to DOAC at discharge MARY on CKD-creatinine elevated to 1.64 on admission; improved with IV hydration #Hyperlipidemia * Continue home statin #Chronic malnourishment * Endorses ~20 pound weight loss since bowel resection in October 2024 with possible absorption concerns; reports loose bowel movements following eating * Albumin 1.7 * Nutrition consult placed * GI consult placed for absorption concerns, history Crohn's not currently on mesalamine; has been on mesalamine in the past but excreted medication unchanged DVT Ppx: lovenox Code status: Full PCP: Dr. Griffin Time spent evaluating patient, direct bedside care, chart review, placing orde rs, interpretation of diagnostic studies, discussion with consultants, patient, and family members, as well as other required patient management activities is 50 minutes Please note the above document was generated using voice recognition software. It may contain grammatical, syntax or spelling errors. Any formal questions or concerns about the content, text or information contained within the body of this dictation should be directly addressed to the provider for clarification (2) Hypokalemia: (3) DVT (deep venous thrombosis): (4) Hyperlipemia: (5) MARY (acute kidney injury): (6) Stage 3a chronic kidney disease (CKD): (7) Chronic malnutrition: Admission and Anticipated Discharge Date Admission Date: February 10, 2025 Subjective Patient seen and examined at bedside. She reports weakness on her right leg; reports that it gives out when trying to walk. She denies any back pain/numbness in her tingling sensation. Review of Systems Review of Systems: All systems reviewed & are unremarkable except as noted in Subjective Physical Exam Physical Exam: Constitutional: Appears comfortable; not in distress. Respiratory: Bilateral vesicular breath sound Cardiovascular: RRR, no murmur, no edema Vessels: no JVD or carotid bruit Chest: normal inspection of chest Abdomen: normal bowel sounds, soft, nontender, no hepatosplenomegaly Musculoskeletal: no cyanosis or clubbing, extremities motor strength 5/5 Skin: no rashes, warm and dry normal turgor Neurologic: PERRL, EOMI, accommodation nl, no face palsy, no dysarthria CN's II- XI intact bilaterally. Strength in right leg 4+/ 5 Psychiatric: A+Ox3, euthymic affect Results & Data Results & Data Vital Signs (Past 12 Hours) Vital Signs Temp Pulse Resp BP Pulse Ox O2 Del Method 02/11/25 08:24 36.6 C 63 18 122/74 98 Room Air 02/11/25 04:31 36.5 C 67 16 114/57 L 98 Room Air 02/10/25 23:56 36.6 C 66 18 118/76 97 Room Air
--- NOTE | 2025-02-11 11:17 | History & Physical Report ---
Date of Service February 11, 2025 Assessment & Plan (1) Malabsorption: Plan: Patient may de be having some malabsorption. Differential includes recurrent Crohn's disease, small bowel bacterial overgrowth in this patient who has had long-term bowel obstruction. 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 Should do celiac testing for completion. With bile salt malabsorption and gastric hypersecretion in the face of previous ileal and bowel resection,there is a potential for fat malabsorption also. Patient's dietary habits and smoking are aggravating the problem. Patient should be on a specific diet which would include complex carbohydrates 60%, 20% protein and 20% fat. She should avoid sugary drinks and juices which may aggravate diarrhea. Ask dietary to assess. Patient should have her Protonix increased to twice daily to decrease gastric hypersecretion, she should be on Imodium to slow passage of intestinal contents to increase time of absorption. In regards to her hypokalemia this may improve if we slow the passage of her tablets. However in meantime I would suggest may be a liquid potassium trial. Alternatively because she could use something like Micro-K capsules which could be opened and sprinkled on her food. B12 folate and iron levels look okay. Should receive thiamine. Continue oral multivitamin. Patient should stop smoking. For oral hydration it would be superior to use something like Pedialyte daily. Gatorade potentially could aggravate diarrhea. If she is to continue a Gatorade I would mix it [id number] with water. Avoid pal as they are high in oxalate and sugars increasing the risk of further diarrhea and kidney stones. I also think we should treat her for potential small bowel bacterial overgrowth. There is no good diagnostic test for this. Start with Xifaxan 550 twice daily. At discharge she will need an alternative like Augmentin. She will not get Xifaxan approved for Crohn's disease or small bowel bacterial overgrowth. Only downside Augmentin is the potential for diarrhea. (2) CD (Crohn's disease): Plan: Patient is a very high risk of Crohn's reoccurrence related to her smoking and past history. Should have colonoscopy to evaluate whether there is active Crohn's disease both for prognostication in regard to starting medications and to rule this out as a part of the current situation. Plan to do on Thursday. (3) Short gut syndrome: Plan: Is not clear that this patient actually has short gut. By history she has had about 65 cm of small bowel removed. This should leave an adequate amount of small bowel present. Typically the small bowel length and short gut is 200 cm or less. So the patient should have 400 to 500 cc of bowel left. I would work on optimizing her bowel function. (4) Barretts esophagus: Plan: Reviewed with patient timing of last endoscopy for this Dewey's. (5) Stage 3a chronic kidney disease (CKD): Plan See above. Dietary consult. Imodium increased Protonix twice daily. Xifaxan for small bowel bacterial overgrowth colonoscopy on Thursday Admission and Anticipated Discharge Date Admission Date: February 10, 2025 History of Present Illness Chief Complaint: Chron's disease, malabsorption Primary Care Provider: Henry Griffin MD Complex GI case. History of 2 bowel resections. Most recent in October. By patient's report this was for stricturing disease. Patient continues to smoke though she states she has reduced it to 5 to 6 cigarettes/day. She has really not been on any sustained GI medication predominately related to cost. Mesalamine would not be an adequate drug to treat stricturing Crohn's disease. She had started on Humira which she took for a very short period of time I do not think she even finished loading dose and subsequently to Entyvio. Sounds like she received loading dose +2 maintenance doses. Unfortunately his medications though they can reduce inflammation will not resolve a small bowel stricture likely prompting need for operative intervention in October. Patient is also had a cholecystectomy which will contribute to increased diarrhea and potentially to some fat malabsorption in a patient with intestinal resection. Patient's had 20+ weight loss since surgery. Dietary her intake has been poor. Sound like she predominately has scrambled eggs and soups. She drinks Gatorade and Pepsi as her oral rehydration. Unfortunately both of these are fairly high in simple sugars and solutes which could aggravate diarrhea. Pepsi is also a risk for her with high oxalate content which may increase risk of kidney stones She does states she can take chicken and fish but she has been mostly sticking to a soft diet. She does have a history of acid reflux though denies true dysphagia. The patient is edentulous. She is on no antidiarrheals. She takes Protonix 1 time per day. Typically will use Protonix twice daily in patients with bowel resection with potential short gut due to gastric hypersecretion that can occur in this situation which aggravates diarrhea and reflux. Patient is having trouble tolerating potassium supplements she states she passes them whole. Typical potassium tablets are slow release and D she may pass them whole this may be improved by using Imodium. Liquid potassium or potassium such as Micro-K sprinkled on the food. She has had no follow-up endoscopy since her surgery. Typically in this situation a colonoscopy 3 to 6 months post surgery is recommended to evaluate for recurrent disease Patient also complains of pain in the right lower quadrant thigh area with numbness and maybe some weakness. This is highly suspicious for femoral nerve injury. This can be a result of pelvic surgery. Suggest MRI for evaluation. Allergies Allergy/AdvReac Type Severity Reaction Status Date / Time hydromorphone AdvReac Intermediate shaky, Unverified 02/10/25 15:01 cold sweats, "loopy-like" Home Medications Medication Instructions Recorded Confirmed Type multivitamin with minerals 1 tab PO QAM 02/05/22 02/10/25 History (Multiple Vitamin-Minerals tablet) pantoprazole 40 mg tablet,delayed 40 mg PO QAM 02/05/22 02/10/25 History release (Protonix) potassium chloride 20 mEq 20 meq PO QAM 02/05/22 02/10/25 History tablet,extended release(part/cryst) aspirin 325 mg tablet 325 mg PO UD 02/10/25 02/10/25 History potassium chloride 20 mEq/15 mL 0 meq PO UD 02/10/25 02/10/25 History oral liquid rosuvastatin 20 mg tablet 20 mg PO DAILY 02/10/25 02/10/25 History Past Med/Surg History Problem List (Updated 02/11/25 @ 11:21 by Babak Mccurdy MD) Short gut syndrome Malabsorption MARY (acute kidney injury) Chronic malnutrition DVT (deep venous thrombosis) Dizziness Encounter for pre-operative examination Crohn's disease (Chronic) Abdominal pain (Acute) Diarrhea (Acute) History of Crohn's disease (Acute) Hypokalemia (Acute) Medical History (Updated 02/11/25 @ 11:21 by Babak Mccurdy MD) Stage 3a chronic kidney disease (CKD) Barretts esophagus History of palpitations beginning 12/2021, chest pain, went to ER, did EKG, and there were no findings>attributed to her gallbladder History of COVID-19 end 11/2021, had test thru work; stuffy nose>resolved. History of anesthesia problem medications that are meant to make me tired/sleepy work opposite, they "make me wired" Hyperlipemia CD (Crohn's disease) Hypertension Surgical History Hx of laparoscopy w/LT oophorectomy Hx of colectomy in the late , had 10" bowel removed due to Crohn's History of esophagogastroduodenoscopy (EGD) Hx of colonoscopy Hx of tonsillectomy Social History Smoking Status: Current every day smoker Tobacco Type: Cigarettes Cigarettes Per Day: half pack; Second Hand Exposure: No; Do You Dip or Chew Tobacco: No; Hx Alcohol Use: No Hx Substance Use: No Preferred Language: Namibian Communication Ability: Effective Still Cleaner Required: No Beliefs That Will Affect Care: None Current Living Situation: Spouse Current Living Situation Comment: home with , one story home Other Information That Helps Us Care for You: No Feels Safe at Home: Yes Safety Concerns: Feels Safe At This Time Assistive Devices: Denture - Upper, Glasses and Hearing Aid - Bilateral Review of Systems Weight loss is mention. Denies fevers chills night sweats chest pain. Frequent falls Respiratory chronic cough no change. Cardiovascular no exertional chest pain GI as mentioned MSK hip and thigh pain. Recent fall. 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 Frequent coughs during interview. Alert and orientated. So-so historian Eyes reveal no jaundice Chest coarse breath sound Cardiovascular no S3-S4 Abdomen nondistended. Bowel sounds present. Minimal discomfort on deep palpation in the right lower quadrant. No masses. 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 Physical exam otherwise normal Physical exam otherwise normal Results & Data Vital Signs (Past 12 Hours) Vital Signs Temp Pulse Resp BP Pulse Ox O2 Del Method 02/11/25 08:24 36.6 C 63 18 122/74 98 Room Air 02/11/25 04:31 36.5 C 67 16 114/57 L 98 Room Air 02/10/25 23:56 36.6 C 66 18 118/76 97 Room Air Code Status & VTE Plan VTE Prophylaxis Plan VTE Prophylaxis will be ordered: Yes Coding Level of Care Code INT OBSERVATION CARE 50M LVL 2 Diagnoses Malabsorption K90.9 CD (Crohn's disease) K50.90 Short gut syndrome K90.829 Barretts esophagus K22.70 Stage 3a chronic kidney disease (CKD) N18.31
--- NOTE | 2025-02-11 11:35 | Communication Note ---
Date of Service: February 11, 2025 See consultation note GI Patient's leg pain and weakness on the right is concerning for femoral nerve injury. This can happen in any pelvic surgery. Recommend MRI
[2025-02-11 11:47] LABS: ANTI-Xa, UFH(UnfractionatedHep < 0.10 IU/ml (0.3-0.7)
[2025-02-11] MEDS: LOPERAMIDE LIQUID 120 ML BOTTLE PO SCH (13:40)
[2025-02-11] MEDS: THIAMINE HCL 100 MG in SYRINGE 9 ML IV STA (13:41)
--- NOTE | 2025-02-11 14:07 | XCELERA ---
[id number]
[2025-02-11] MEDS: ACETAMINOPHEN 325 MG TAB PO PRN (22:51)
[2025-02-12] MEDS: ASPIRIN 81 MG ECTAB PO STA (00:19)
[2025-02-12] MEDS: DIPHENOXYLATE/ATROPINE 2.5/0.025MG TAB PO ONE (00:19)
[2025-02-12] MEDS: APIXABAN 5 MG TABLET PO ONE (00:19)
[2025-02-12 07:59] LABS: Hematocrit (blood only) 35.0 % (37.0-47.0); Hemoglobin 11.3 g/dl (12.0-16.0); Immature Granulocytes # (auto) 0.02 K/uL (0.01-0.20); Immature Granulocytes % (auto) 0.3 %; Mean Corpuscular Hemoglobin 29.4 pg (25.0-34.0); Mean Corpuscular Volume 91.1 fL (80.0-100.0); Platelet Count 257 K/uL (130-400); RDW Standard Deviation 61.2 fL (36.4-46.3); Red Blood Count 3.84 M/uL (4.20-5.40); White Blood Count 5.93 K/ul (4.8-10.8)
[2025-02-12 08:13] LABS: Anion Gap 5.0 (3-11); Blood Urea Nitrogen 18.0 mg/dl (6-23); Calcium 7.1 mg/dl (8.6-10.3); Carbon Dioxide 21.0 mmol/L (21-32); Chloride 112.0 mmol/L (98-107); Creatinine Clr Calc Pharmacy 35.5 ml/min; Glucose 67.0 mg/dl (70-99(Fasting)); Immunoglobulin A 334.9 mg/dl (70-400); Potassium 3.7 mmol/L (3.5-5.1); Sodium 138.0 mmol/L (136-145)
[2025-02-12] MEDS: APIXABAN 5 MG TABLET PO SCH (08:29)
[2025-02-12] MEDS: THIAMINE HCL 200 MG in SODIUM CHLORIDE 0.9% 50 ML IV SCH (09:48)
--- NOTE | 2025-02-12 10:52 | Hospitalist Progress Note ---
Date of Service February 12, 2025 Assessment & Plan (1) Dizziness: Plan: Patient is a 69 year old F with a past medical history of Crohn's s/p bowel resection 10/2024 w/ 40 cm bowel removed, nutritional deficiency, hypokalemia, presenting with right leg pain. Symptoms began this morning with leg numbness. Patient has had multiple ground level falls recently, and is unaware of why she is falling. Denies dizziness and chest pain prior to the fall. Patient went to [facility] yesterday for dizziness and found to have hypokalemia, replaced with IV supplementation and d/c to home with oral supplementation. Unable to tolerate oral K+ supplemental given. Negative CT imaging at [facility] yesterday for dizziness workup. Since falling 1 week ago having parathesias throughout the right leg. Dizziness Right leg weakness Hypokalemia Hypomagnesemia Patient presents with recurrent falls; reports that her right leg gives out at times. MRI brainno acute findings to suggest stroke EchocardiogramEF within normal limits; no valvular dysfunction No labs on telemetry Plan to obtain MRI pelvis to rule out occult injury given her recent falls/weakness on her right leg. Continue to monitor on telemetry Continue to hold antihypertensives PT OT evaluation Acute DVT of right peroneal vein- Patient is started on Eliquis; will need at least 3 to 6-month of anticoagulation; age-appropriate cancer screening as outpatient with her primary care doctor MARY on CKD-creatinine elevated to 1.64 on admission; improved with IV hydration #Hyperlipidemia * Continue home statin #Chronic malnourishment * Endorses ~20 pound weight loss since bowel resection in October 2024 with possible absorption concerns; reports loose bowel movements following eating * Imodium dose increased; Protonix twice daily as well as rifaximin. Continue to monitor * Possible colonoscopy tomorrow DVT Ppx: eliquis Code status: Full PCP: Dr. Griffin Time spent evaluating patient, direct bedside care, chart review, placing orders, interpretation of diagnostic studies, discussion with consultants, patient, and family members, as well as other required patient management activities is 50 minutes Please note the above document was generated using voice recognition software. It may contain grammatical, syntax or spelling errors. Any formal questions or concerns about the content, text or information contained within the body of this dictation should be directly addressed to the provider for clarification (2) Hypokalemia: (3) DVT (deep venous thrombosis): (4) Hyperlipemia: (5) MAYR (acute kidney injury): (6) Stage 3a chronic kidney disease (CKD): (7) Chronic malnutrition: Admission and Anticipated Discharge Date Admission Date: February 10, 2025 Subjective Patient seen and examined at bedside. She is comfortable; not in distress. Reports that her weakness on her right leg is slightly improved. Review of Systems Review of Systems: All systems reviewed & are unremarkable except as noted in Subjective Physical Exam Physical Exam: Constitutional: Appears comfortable; not in distress. Respiratory: Bilateral vesicular breath sound Cardiovascular: RRR, no murmur, no edema Vessels: no JVD or carotid bruit Chest: normal inspection of chest Abdomen: normal bowel sounds, soft, nontender, no hepatosplenomegaly Musculoskeletal: no cyanosis or clubbing, extremities motor strength 5/5 Skin: no rashes, warm and dry normal turgor Neurologic: PERRL, EOMI, accommodation nl, no face palsy, no dysarthria CN's II- XI intact bilaterally. Strength in right leg 4+/ 5; mildly improved compared to yesterday Psychiatric: A+Ox3, euthymic affect Results & Data Results & Data Vital Signs (Past 12 Hours) Vital Signs Temp Pulse Pulse Resp BP Pulse Ox O2 Del Method 02/12/25 07:44 36.6 C 68 18 129/72 97 Room Air 02/12/25 07:12 60 02/12/25 04:01 36.7 C 70 20 111/59 L 97 Room Air 02/12/25 01:41 Room Air 02/12/25 00:17 36.9 C 70 20 128/76 98 Room Air 02/12/25 00:05 68
--- NOTE | 2025-02-12 12:34 | Magnetic Resonance Report ---
HISTORY: Right hip pain after fall. Evaluation for occult fracture. TECHNIQUE: MR imaging of the pelvis without contrast. COMPARISON: CT dated 11/28/2024. Radiographs dated1. FINDINGS: No bone marrow edema to suggest acute fracture or contusion. The hips are appropriately aligned. Mild osteoarthritis of the bilateral hips. The femoral heads and proximal femurs appear intact. Mild osteoarthritis of the pubic symphysis. Sacroiliac joints are unremarkable. Inferior and superior pubic rami are unremarkable. The acetabulum appear intact. Severe degenerative disc disease at L4-5. Posterior disc bulge mildly narrows the central canal at L4-5. The sacrum appears intact. Small bilateral hip joint effusions. Extensive soft tissue edema about the pelvis and proximal thighs with edema within the subcutaneous fat and extending along the fascial planes of the upper thigh musculature. no well-developed fluid collection is seen. The attaching tendons are unremarkable. Moderate nonspecific free fluid in the pelvis. Nonspecific wall thickening of the colon is noted. IMPRESSION: * No evidence of acute fracture or contusion. * Mild osteoarthritis of the hips. Small bilateral hip joint effusions. * Extensive soft tissue swelling about the pelvic body wall and proximal thighs. * Moderate nonspecific free fluid in the pelvis. * Severe degenerative disc disease at L4-5. * Nonspecific mild circumferential thickening of the colon. Electronically signed by Guerrero Simmons 02-12-2025 12:31 PM
--- NOTE | 2025-02-12 12:41 | Gastroenterology Progress Note ---
Date of Service February 12, 2025 Assessment & Plan (1) History of Crohn's disease: Plan: Weight loss diarrhea and recent Crohn surgery. 6 months or so ago. Evaluate for recurrent disease. Colon prep and colonoscopy tomorrow. Admission and Anticipated Discharge Date Admission Date: February 10, 2025 Subjective Colitis Crohn's disease MRI does suggest some wall thickening of the colon. This may just be related to hypoalbuminemia. Though could reflect inflammatory disease. Will proceed with a colonoscopy tomorrow. This will be important to evaluate potential for inflammatory component her symptoms. Though as per my previous note yesterday I suspect predominantly this is related to diet, oral intake, diarrhea, postcholecystectomy state and IC valve removal, and potentially bacterial overgrowth. Hypokalemia corrected Review of Systems Review of Systems: Denies fevers chills night sweats chest pain or shortness of breath. Plaint is leg pain. Physical Exam Physical Exam: Sitting up in the bed no acute distress. Benign abdomen. Results & Data Results & Data Vital Signs (Past 12 Hours) Vital Signs Temp Pulse Pulse Resp BP Pulse Ox O2 Del Method 02/12/25 12:17 37.4 C 64 16 128/69 98 Room Air 02/12/25 07:44 36.6 C 68 18 129/72 97 Room Air 02/12/25 07:12 60 02/12/25 04:01 36.7 C 70 20 111/59 L 97 Room Air 02/12/25 01:41 Room Air PG Care Time/CCT Total # of Minutes Spent Total Time Spent with Patient: Total time spent is greater than 50% in coordination of care (as documented) at patient's floor/unit and/or counseling patient: Coding Level of Care Code 13253 SUB INP/OBS CARE 05/14MIN Diagnoses History of Crohn's disease Z87.19
[2025-02-12] MEDS: LAVAGE SOLUTION 4000ML PO SCH (16:04)
[2025-02-12] MEDS: ASPIRIN 81 MG CHEW PO STA (21:49)
[2025-02-13 06:15] LABS: Hematocrit (blood only) 30.3 % (37.0-47.0); Hemoglobin 10.7 g/dl (12.0-16.0); Mean Corpuscular Hemoglobin 30.7 pg (25.0-34.0); Mean Corpuscular Volume 86.8 fL (80.0-100.0); Platelet Count 214 K/uL (130-400); RDW Standard Deviation 56.9 fL (36.4-46.3); Red Blood Count 3.49 M/uL (4.20-5.40); White Blood Count 4.55 K/ul (4.8-10.8)
[2025-02-13 07:00] LABS: Immature Granulocytes # (auto) 0.03 K/uL (0.01-0.20); Immature Granulocytes % (auto) 0.7 %
[2025-02-13 07:06] LABS: Anion Gap 6 (3-11); Blood Urea Nitrogen 17 mg/dl (6-23); Calcium 7.0 mg/dl (8.6-10.3); Carbon Dioxide 20 mmol/L (21-32); Chloride 111 mmol/L (98-107); Creatinine Clr Calc Pharmacy 34.6 ml/min; Glucose 61 mg/dl (70-99(Fasting)); Potassium 3.5 mmol/L (3.5-5.1); Sodium 137 mmol/L (136-145)
[2025-02-13 07:09] LABS: Alanine Aminotransferase 23 U/L (7-52); Albumin Level < 1.5 gm/dl (3.4-5.0); Alkaline Phosphatase 128 U/L (34-104); Bilirubin,Total 0.3 mg/dl (0.2-1.0); Total Protein 4.1 gm/dl (6.0-8.3)
[2025-02-13] MEDS ORDERED: D5W AND LACTATED RINGERS 1,000 ML IV SCH (08:45)
[2025-02-13] MEDS: ASPIRIN 81 MG CHEW PO STA ×2 (09:28→20:39)
[2025-02-13] MEDS: D5W AND NSS 1,000 ML IV SCH (09:29)
[2025-02-13] MEDS: ONDANSETRON INJ 2 MG/ML 2 ML VIAL IV PRN (09:33)
--- NOTE | 2025-02-13 10:43 | Hospitalist Progress Note ---
Date of Service February 13, 2025 Assessment & Plan (1) Dizziness: Plan: Patient is a 69 year old F with a past medical history of Crohn's s/p bowel resection 10/2024 w/ 40 cm bowel removed, nutritional deficiency, hypokalemia, presenting with right leg pain. Symptoms began this morning with leg numbness. Patient has had multiple ground level falls recently, and is unaware of why she is falling. Denies dizziness and chest pain prior to the fall. Patient went to [facility] yesterday for dizziness and found to have hypokalemia, replaced with IV supplementation and d/c to home with oral supplementation. Unable to tolerate oral K+ supplemental given. Negative CT imaging at [facility] yesterday for dizziness workup. Since falling 1 week ago having parathesias throughout the right leg. Dizziness Right leg weakness Hypokalemia Hypomagnesemia Patient presents with recurrent falls; reports that her right leg gives out at times. MRI brainno acute findings to suggest stroke EchocardiogramEF within normal limits; no valvular dysfunction MRI of the pelvis does not show any acute fracture or contusion; extensive soft tissue swelling about the pelvic wall and proximal thighs. Her strength in right leg continues to improve; plan to prescribe walker at the time of the discharge. Continue to monitor on telemetry Continue PT OT Started on D5 while she is NPO Acute DVT of right peroneal vein- Patient is started on Eliquis; Likely result of decreased mobility of the right leg due to injury. Will need at least 3 months of anticoagulation. MARY on CKD-creatinine elevated to 1.64 on admission; improved with IV hydration #Hyperlipidemia * Continue home statin #Chronic malnourishment * Endorses ~20 pound weight loss since bowel resection in October 2024 with possi ble absorption concerns; reports loose bowel movements following eating * Imodium dose increased; Protonix twice daily as well as rifaximin. Continue to monitor * Possible colonoscopy today DVT Ppx: eliquis on hold for colonscopy Code status: Full PCP: Dr. Griffin Time spent evaluating patient, direct bedside care, chart review, placing orders, interpretation of diagnostic studies, discussion with consultants, patient, and family members, as well as other required patient management activities is 50 minutes Please note the above document was generated using voice recognition software. It may contain grammatical, syntax or spelling errors. Any formal questions or concerns about the content, text or information contained within the body of this dictation should be directly addressed to the provider for clarification (2) Hypokalemia: (3) DVT (deep venous thrombosis): (4) Hyperlipemia: (5) MARY (acute kidney injury): (6) Stage 3a chronic kidney disease (CKD): (7) Chronic malnutrition: Admission and Anticipated Discharge Date Admission Date: February 10, 2025 Subjective Patient seen and examined at bedside. She reports that she was not able to tolerate colonoscopy preparation last night. She was found to be hypoglycemic this morning; was started on D5 NS. Review of Systems Review of Systems: All systems reviewed & are unremarkable except as noted in Subjective Physical Exam Physical Exam: Constitutional: Appears comfortable; not in distress. Respiratory: Bilateral vesicular breath sound Cardiovascular: RRR, no murmur, no edema Vessels: no JVD or carotid bruit Chest: normal inspection of chest Abdomen: normal bowel sounds, soft, nontender, no hepatosplenomegaly Musculoskeletal: no cyanosis or clubbing, extremities motor strength 5/5 Skin: no rashes, warm and dry normal turgor Neurologic: PERRL, EOMI, accommodation nl, no face palsy, no dysarthria CN's II-XI intact bilaterally. Strength in right leg 4+/ 5; improvement noted compared to 02/12 Psychiatric: A+Ox3, euthymic affect Results & Data Results & Data Vital Signs (Past 12 Hours) Vital Signs Temp Pulse Pulse Resp BP Pulse Ox O2 Del Method 02/13/25 07:54 37.0 C 69 18 135/79 96 Room Air 02/13/25 04:11 37.3 C 60 18 124/75 92 Room Air 02/12/25 23:25 37.0 C 76 18 116/65 94 Room Air 02/12/25 22:46 99 H
--- NOTE | 2025-02-13 11:41 | Gastroenterology Progress Note ---
Date of Service February 13, 2025 Assessment & Plan (1) Crohn's disease: (2) Diarrhea: Plan Patient did not complete an adequate bowel prep. I did offer a Miralax/Gatorade prep alternative with a colonoscopy tomorrow, but patient declines. She notes she is feeling better and wishes to proceed with her outpatient gastroenterology team as previously scheduled. Admission and Anticipated Discharge Date Admission Date: February 10, 2025 Supervising Physician Co-Signing Physician Notes Patient was unable to take her prep she does not wish to try again. Proceed with management of her diarrhea and poor oral intake. Push p.o. intake protein supplements as required. Imodium 2 slow GI transit times and treat postcholecystectomy and IC valve bile salt diarrhea. Protonix twice daily to decrease gastric hypersecretion. Treat possible small bowel bacterial overgrowth Xifaxan 550 twice daily in hospital. Augmentin on discharge. 500 twice daily for at least 7 more days. Postdischarge Dietary restrictions as per dietary. Avoid sugary drinks. Potassium liquid or micro K potassium sprinkled on her food. Follow-up with usual GI. Subjective Patient is a 69 yo female with Crohn's Disease. She was to have a colonoscopy today, but was unable to complete a bowel prep. Per RN, she still has pieces of solid stool in her bowel movements and she drank very little bowel prep. She was hypoglycemic this AM. No new symptoms. She notes her stool is less frequent as it was previously. No new complaints. Review of Systems Gastrointestinal: + diarrhea/loose stools Physical Exam Constitutional: well developed Respiratory: normal respiratory effort Gastrointestinal (Abdomen): normal bowel sounds, soft, nontender, no hepatosplenomegaly Psychiatric: Orientation: alert and oriented x 3 Results & Data Results & Data Vital Signs (Past 12 Hours) Vital Signs Temp Pulse Resp BP Pulse Ox O2 Del Method 02/13/25 07:54 37.0 C 69 18 135/79 96 Room Air 02/13/25 07:40 Room Air 02/13/25 04:11 37.3 C 60 18 124/75 92 Room Air PG Care Time/CCT Total # of Minutes Spent Total Time Spent with Patient: Total time spent is greater than 50% in coordination of care (as documented) at patient's floor/unit and/or counseling patient: Coding Level of Care Code 62952 SUB INP/OBS CARE 2/35MIN Diagnoses Crohn's disease K50.90 Diarrhea R19.7
[2025-02-13] MEDS: APIXABAN 5 MG TABLET PO SCH (13:10)
[2025-02-13] MEDS: MELATONIN 3 MG TAB PO PRN (20:39)
[2025-02-13 23:26] VITALS: O2SAT 96
[2025-02-14 07:16] VITALS: BP 130/72; RESP 18; TEMP 98.2
--- NOTE | 2025-02-14 11:28 | Discharge Summary ---
Date of Service February 14, 2025 Admission HPI Per Admitting Provider Complex GI case. History of 2 bowel resections. Most recent in October. By patient's report this was for stricturing disease. Patient continues to smoke though she states she has reduced it to 5 to 6 cigarettes/day. She has really not been on any sustained GI medication predominately related to cost. Mesalamine would not be an adequate drug to treat stricturing Crohn's disease. She had started on Humira which she took for a very short period of time I do not think she even finished loading dose and subsequently to Entyvio. Sounds like she received loading dose +2 maintenance doses. Unfortunately his medi cations though they can reduce inflammation will not resolve a small bowel stricture likely prompting need for operative intervention in October. Patient is also had a cholecystectomy which will contribute to increased diarrhea and potentially to some fat malabsorption in a patient with intestinal resection. Patient's had 20+ weight loss since surgery. Dietary her intake has been poor. Sound like she predominately has scrambled eggs and soups. She drinks Gatorade and Pepsi as her oral rehydration. Unfortunately both of these are fairly high in simple sugars and solutes which could aggravate diarrhea. Pepsi is also a risk for her with high oxalate content which may increase risk of kidney stones She does states she can take chicken and fish but she has been mostly sticking to a soft diet. She does have a history of acid reflux though denies true dysphagia. The patient is edentulous. She is on no antidiarrheals. She takes Protonix 1 time per day. Typically will use Protonix twice daily in patients with bowel resection with potential short gut due to gastric hypersecretion that can occur in this situation which aggravates diarrhea and reflux. Patient is having trouble tolerating potassium supplements she states she passes them whole. Typical potassium tablets are slow release and D she may pass them whole this may be improved by using Imodium. Liquid potassium or potassium such as Micro-K sprinkled on the food. She has had no follow-up endoscopy since her surgery. Typically in this situation a colonoscopy 3 to 6 months post surgery is recommended to evaluate for recurrent disease Patient also complains of pain in the right lower quadrant thigh area with numbness and maybe some weakness. This is highly suspicious for femoral nerve injury. This can be a result of pelvic surgery. Suggest MRI for evaluation. Admission Exam Per Admitting Provider Thin lady. Frequent coughs during interview. Alert and orientated. So-so historian Eyes reveal no jaundice Chest coarse breath sound Cardiovascular no S3-S4 Abdomen nondistended. Bowel sounds present. Minimal discomfort on deep palpation in the right lower quadrant. No masses. 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 Physical exam otherwise normal Physical exam otherwise kathy Principal Diagnosis Dizziness Right leg weakness Hypokalemia Hypomagnesemia Discharge Exam Constitutional: Appears comfortable; not in distress. Respiratory: Bilateral vesicular breath sound Cardiovascular: RRR, no murmur, no edema Vessels: no JVD or carotid bruit Chest: normal inspection of chest Abdomen: normal bowel sounds, soft, nontender, no hepatosplenomegaly Musculoskeletal: no cyanosis or clubbing, extremities motor strength 5/5 Skin: no rashes, warm and dry normal turgor Neurologic: PERRL, EOMI, accommodation nl, no face palsy, no dysarthria CN's II- XI intact bilaterally. strength in right leg improved Psychiatric: A+Ox3, euthymic affect Discharge Data Allergies Allergy/AdvReac Type Severity Reaction Status Date / Time hydromorphone AdvReac Intermediate shaky, Unverified 02/10/25 15:01 cold sweats, "loopy-like" Consultations 02/11/25 09:00 Consult Gastroenterology Routine Procedures Performed Operation Date: 02/13/25 16:45 <No data on this case meets the specified criteria> Ordered Studies 02/10/25 13:01 US venous doppler LE RT Stat 02/11/25 08:48 MRI Brain [MR brain wo con] Routine 02/12/25 07:38 MRI Pelvis [MR pelvis wo con] Routine Hospital Course (1) Dizziness: Patient is a 69 year old F with a past medical history of Crohn's s/p bowel resection 10/2024 w/ 40 cm bowel removed, nutritional deficiency, hypokalemia, presenting with right leg pain. Symptoms began this morning with leg numbness. Patient has had multiple ground level falls recently, and is unaware of why she is falling. Denies dizziness and chest pain prior to the fall. Patient went to [facility] yesterday for dizziness and found to have hypokalemia, replaced with IV supplementation and d/c to home with oral supplementation. Unable to tolerate oral K+ supplemental given. Negative CT imaging at [facility] yesterday for dizziness workup. Since falling 1 week ago having parathesias throughout the right leg. Dizziness Right leg weakness Hypokalemia Hypomagnesemia Patient presents with recurrent falls; reports that her right leg gives out at times. MRI brainno acute findings to suggest stroke EchocardiogramEF within normal limits; no valvular dysfunction MRI of the pelvis does not show any acute fracture or contusion; extensive soft tissue swelling about the pelvic wall and proximal thighs. Her strength in right leg continues to improve; Weakness likely related with the bruise on her thigh. Patient was given prescription for walker at the time of the discharge. Patient to follow-up with PCP Acute DVT of right peroneal vein- Patient is started on Eliquis; Likely result of decreased mobility of the right leg due to injury. Will need at least 3 months of anticoagulation. MARY on CKD-creatinine elevated to 1.64 on admission; improved with IV hydration #Hyperlipidemia * Continue home statin #Chronic malnourishment * Endorses ~20 pound weight loss since bowel resection in October 2024 with possible absorption concerns; reports loose bowel movements following eating * GI was consulted during the hospitalization; they recommended colonoscopy. However, patient refused colonoscopy and wanted to follow-up with her GI as outpatient for it. Patient was given Augmentin twice a day for possible small bowel bacterial overgrowth for 1 week and Protonix was increased to twice daily. Please note the above document was generated using voice recognition software. It may contain grammatical, syntax or spelling errors. Any formal questions or concerns about the content, text or information contained within the body of this dictation should be directly addressed to the provider for clarification (2) Hypokalemia: (3) DVT (deep venous thrombosis): (4) Hyperlipemia: (5) MARY (acute kidney injury): (6) Stage 3a chronic kidney disease (CKD): (7) Chronic malnutrition: Total Time Total Time Spent Total Time Spent (In Minutes): 45 Total Time Includes: Examination of the Patient, Discharge Planning, Medication Reconciliation, Communication With Other Providers and Other Discharge Plan Discharge Items Patient Disposition: Home - Self-Care Reason For Visit: HYPOKALEMIA Discharge Diagnosis: Dizziness Right leg weakness Hypokalemia Hypomagnesemia Condition on Discharge: Fair Activity: Resume your previous activity Non-emergency contact: Primary Care Provider Call non-emergency contact if: you have any medication questions and your symptoms worsen Follow-up/Referrals: Henry Griffin MD [Primary Care Provider] - (Date & Time 02/21/2025 3:00 PM Provider: Henry Griffin MD Family Medicine [facility] ) Diet: Regular Addtl Attending Provider Instructions: You were admitted to the hospital due to weakness on your right leg. You are found to have clot in your leg. You are prescribed Eliquis 5 mg to be taken as follows Take Eliquis 10 mg(2 tablets) twice a day for 7 days brain starting (until February 19, 2025) From February 20, 2025-start taking Eliquis 5 mg twice a day. You will need blood thinners for at least 3 months. You were also evaluated by GI during the hospitalization. You are prescribed following medications; Take Augmentin twice a day for 7 days Take Protonix 40 mg twice a day Please follow-up with GI regarding colonoscopy as outpatient Follow-up with your PCP as scheduled Pending Studies at Discharge: No Stand-Alone Forms: [facility] Smoking Cessation Medications and DC Order Prescriptions: New Eliquis 5 mg tablet 5 mg PO BID Qty: 74 0RF amoxicillin-pot clavulanate 500-125 mg tablet 1 tab PO BID 7 Days Qty: 14 0RF Continued Multiple Vitamin-Minerals Tablet 1 tab PO QAM potassium chloride 20 mEq tablet,ER particles/crystals 20 meq PO QAM aspirin 325 mg Tablet 325 mg PO UD potassium chloride 20 mEq/15 mL liquid 0 meq PO UD Patient Comments: 02/10-hasnt started the liquid version yet rosuvastatin 20 mg tablet 20 mg PO DAILY Changed pantoprazole [Protonix] 40 mg tablet,delayed release (DR/EC) 40 mg PO BID Qty: 60 0RF Discharge Orders: Discharge Order (Routine); Ordered 02/14/25 Ordered By: Manuel Santiago Admission Data Admit Date/Time: 02/10/25 16:21 Attending Provider: Manuel Santiago Admit Provider: Naveen Singletary Primary Care Provider: Henry Griffin Other Providers: Babak Mccurdy Other Interventions: Discharge Summary Assessment (RN) Last Done: 02/14/25 10:45
[2025-02-14 14:46] VITALS: PULSE 95
== END 2025-02-14 15:13 | disposition home or self-care (01) | DRG 300 ==
LOC: ED 12:21 → 2W 16:21 → SUATTDRO 16:21 → 2W 18:44

== ENCOUNTER 2025-04-06 20:16 | Inpatient (IN) ==
[2025-04-06 21:14] LABS: Appearance Urine Cloudy (Clear); Bacteria Urine Automated 4+ (None Seen); Glucose Urine UA Negative (Negative); RBC Urine Automated 0-2 /hpf (0-2); WBC Urine Automated >50 /hpf (0-5)
[2025-04-06 21:18] LABS: Hematocrit (blood only) 31.4 % (37.0-47.0); Hemoglobin 11.1 g/dL (12.0-16.0); Immature Granulocytes # (auto) 0.04 K/uL (0.01-0.20); Immature Granulocytes % (auto) 0.5 %; Mean Corpuscular Hemoglobin 32.3 pg (25.0-34.0); Mean Corpuscular Volume 91.3 fL (80.0-100.0); Platelet Count 320 K/uL (130-400); RDW Standard Deviation 49.9 fL (36.4-46.3); Red Blood Count 3.44 M/uL (4.20-5.40); White Blood Count 8.37 K/ul (4.8-10.8)
[2025-04-06 21:36] LABS: Alanine Aminotransferase 46.0 U/L (7-52); Albumin Globulin Ratio 0.6 (0.9-2); Albumin Level 1.7 gm/dl (3.4-5.0); Alkaline Phosphatase 148.0 U/L (34-104); Anion Gap 9.0 (3-11); Bilirubin,Total 0.3 mg/dl (0.2-1.0); Blood Urea Nitrogen 23.0 mg/dl (6-23); Calcium 6.3 mg/dl (8.6-10.3); Carbon Dioxide 19.0 mmol/L (21-32); Chloride 108.0 mmol/L (98-107); Creatinine Clr Calc Pharmacy 19.8 ml/min; Globulin 3.0 gm/dl (2.5-4.0); Glucose 110.0 mg/dl (70-99(Fasting)); Potassium 2.7 mmol/L (3.5-5.1); Sodium 136.0 mmol/L (136-145); Total Protein 4.7 gm/dl (6.0-8.3)
--- NOTE | 2025-04-06 22:05 | Emergency Department Note ---
History of Present Illness General Chief complaint: Cardiac Assessment Stated complaint: LOW BP, CHEST PAIN SINCE EVENING Time Seen by Provider: 04/06/25 21:03 Source: patient Mode of arrival: ambulatory Limitations: no limitations History of Present Illness Maximum Pain Intensity: 2 Patient is a 69-year-old female with history of Crohn's disease status post small bowel resection who presents for low blood pressure noted today. She states she was feeling off today and started to feel lightheaded when she was standing up. She checked her blood pressure and noted her systolic pressure was in the 70s. She then started to develop some midsternal chest pain around 7 PM. Describes it as "someone punched my test". Lasted only a few seconds. No associated nausea, vomiting, diaphoresis, radiation of pain to her extremities. No similar symptoms in the past. She was recently started on Eliquis about a month prior for a DVT diagnosed while she was in the hospital. She is eating and drinking well. Denies any changes in diarrhea. No melena or hematochezia reported. No new medications. Home Medications Medication Instructions Recorded Confirmed Type multivitamin with minerals 1 tab PO QAM 02/05/22 04/06/25 History (Multiple Vitamin-Minerals tablet) potassium chloride 20 mEq 20 meq PO QAM 02/05/22 04/06/25 History tablet,extended release(part/cryst) rosuvastatin 20 mg tablet 20 mg PO HS 02/10/25 04/06/25 History apixaban 5 mg tablet (Eliquis) 5 mg PO BID #74 tabs 02/13/25 04/06/25 Rx aspirin 81 mg tablet,delayed 81 mg PO DAILY 04/06/25 04/06/25 History release budesonide 3 mg 3 mg PO QAM 04/06/25 04/06/25 History capsule,delayed,extended release pantoprazole 40 mg tablet,delayed 40 mg PO QAM 04/06/25 04/06/25 History release (Protonix) Allergies Allergy/AdvReac Type Severity Reaction Status Date / Time hydromorphone AdvReac Intermediate ismaky, Verified 04/06/25 22:32 cold sweats, "loopy-like" Past Med/Surg History Problem List (Updated 04/07/25 @ 00:27 by Scott Billings MD) Chest pain (Acute) Hypomagnesemia (Acute) DVT (deep venous thrombosis) (Acute) Short gut syndrome Malabsorption MARY (acute kidney injury) (Acute) Chronic malnutrition DVT (deep venous thrombosis) Dizziness Encounter for pre-operative examination Crohn's disease (Chronic) Abdominal pain (Acute) Diarrhea (Acute) History of Crohn's disease (Acute) Hypokalemia (Acute) Medical History Stage 3a chronic kidney disease (CKD) Barretts esophagus History of palpitations beginning 12/2021, chest pain, went to ER, did EKG, and there were no findings>attributed to her gallbladder History of COVID-19 end 11/2021, had test thru work; stuffy nose>resolved. History of anesthesia problem medications that are meant to make me tired/sleepy work opposite, they "make me wired" Hyperlipemia CD (Crohn's disease) Hypertension Surgical History Hx of laparoscopy w/LT oophorectomy Hx of colectomy in the late , had 10" bowel removed due to Crohn's History of esophagogastroduodenoscopy (EGD) Hx of colonoscopy Hx of tonsillectomy Social History Smoking Status: Former smoker Tobacco Type: Cigarettes Cigarettes Per Day: half pack; Second Hand Exposure: No; Do You Dip or Chew Tobacco: No; Hx Alcohol Use: No Hx Substance Use: No Preferred Language: Thai Communication Ability: Effective Inoculator Required: No Beliefs That Will Affect Care: None Current Living Situation: Spouse Current Living Situation Comment: home with , one story home Feels Safe at Home: Yes Assistive Devices: None Review of Systems Review of systems negative outside of positive findings mentioned in HPI. Physical Exam Vital Signs Vital Signs - 24 hr 04/06/25 20:20 04/06/25 20:40 04/06/25 20:40 Pulse Rate - Lying Pulse Rate - Sitting Pulse Rate - Standing Pulse Rate 80 100 H Pulse Rate [Right Finger] 120 H Pulse Rhythm [Right Finger] Regular Pulse Strength [Right Finger] Normal Respiratory Rate 19 16 Respiratory Effort / Characteristics Non-Labored Spontaneous Non-Labored Spontaneous Respiratory Depth Normal Normal Respiratory Pattern Regular Regular Blood Pressure - Lying Blood Pressure - Sitting Blood Pressure- Standing Blood Pressure 117/78 Blood Pressure [Right Arm] 132/85 Blood Pressure Mean 91 Blood Pressure Mean [Right Arm] 100 Blood Pressure Position Sitting Blood Pressure Position [Right Arm] Lying Pulse Oximetry 96 95 Oxygen Delivery Method Room Air Room Air Sepsis Recent Fever Within 48 Hours No Sepsis New/Unexplained Change in Mental Status No Sepsis Action Taken by Nursing No Action Required 04/06/25 20:40 04/06/25 22:05 04/06/25 22:17 Pulse Rate - Lying 96 H Pulse Rate - Sitting 83 Pulse Rate - Standing 94 H Pulse Rate Pulse Rate [Right Finger] 95 H Pulse Rhythm [Right Finger] Regular Pulse Strength [Right Finger] Normal Respiratory Rate 18 Respiratory Effort / Characteristics Non-Labored Spontaneous Respiratory Depth Normal Respiratory Pattern Regular Blood Pressure - Lying 139/85 Blood Pressure - Sitting 126/78 Blood Pressure- Standing 136/75 Blood Pressure Blood Pressure [Right Arm] 136/74 Blood Pressure Mean Blood Pressure Mean [Right Arm] 94 Blood Pressure Position Blood Pressure Position [Right Arm] Lying Pulse Oximetry 94 Oxygen Delivery Method Room Air Room Air Sepsis Recent Fever Within 48 Hours Sepsis New/Unexplained Change in Mental Status Sepsis Action Taken by Nursing 04/07/25 00:01 Pulse Rate - Lying Pulse Rate - Sitting Pulse Rate - Standing Pulse Rate 81 Pulse Rate [Right Finger] Pulse Rhythm [Right Finger] Pulse Strength [Right Finger] Respiratory Rate Respiratory Effort / Characteristics Respiratory Depth Respiratory Pattern Blood Pressure - Lying Blood Pressure - Sitting Blood Pressure- Standing Blood Pressure Blood Pressure [Right Arm] Blood Pressure Mean Blood Pressure Mean [Right Arm] Blood Pressure Position Blood Pressure Position [Right Arm] Pulse Oximetry Oxygen Delivery Method Sepsis Recent Fever Within 48 Hours Sepsis New/Unexplained Change in Mental Status Sepsis Action Taken by Nursing See below Constitutional WD/WN, vitals as above Respiratory normal respiratory effort, lungs clear to auscultation Cardiovascular Rate/Rhythm: + tachycardic Heart Sounds: normal S1 and normal S2 Extremities: + pedal edema and + edema; no calf tenderness Course Administered Medications Discontinued Medications Sodium Chloride (Nss) 1,000 mls @ 999 mls/hr IV .Q1H1M ONE Stop: 04/06/25 23:08 Last Admin: 04/06/25 22:25 Dose: 999 mls/hr Documented By: VIKKI Potassium Chloride (K Pascual / Wtr) 10 meq in 100 mls @ 100 mls/hr IV Q1H JAMAL Stop: 04/07/25 00:14 Last Admin: 04/06/25 22:25 Dose: 100 mls/hr Documented By: [facility] Potassium Chloride (Potassium Chloride Crtab 20 Meq Tabcr) 20 meq PO NOW STA Stop: 04/06/25 22:09 Last Admin: 04/06/25 22:25 Dose: 20 meq Documented By: [facility] Medical Decision Making Differential Diagnosis DDx includes but not limited to: Orthostatic hypotension, hypovolemia, MARY, hypokalemia, ACS Medical Records Attestation: I reviewed the patient's medical records. Home Medications Current Medication List: was personally reviewed by me Laboratory Data Attestation: I reviewed the patient's lab results. 04/06/25 21:06 04/06/25 21:06 Lab Results 04/06/25 04/06/25 04/06/25 Range/Units 20:35 21:06 23:35 WBC 8.37 (4.8-10.8) K/ul RBC 3.44 L (4.20-5.40) M/uL Hgb 11.1 L (12.0-16.0) g/dL Hct 31.4 L (37.0-47.0) % MCV 91.3 (80.0-100.0) fL MCH 32.3 (25.0-34.0) pg MCHC 35.4 (32.0-36.0) g/dL RDW Std Deviation 49.9 H (36.4-46.3) fL RDW Coeff of Bell 14.8 H (11.5-14.5) % Plt Count 320 (130-400) K/uL MPV 9.1 L (9.4-12.4) fL Immature Gran % (Auto) 0.5 % Neut % (Auto) 75.5 % Lymph % (Auto) 17.2 % Rock % (Auto) 6.5 % Eos % (Auto) 0.2 % Baso % (Auto) 0.1 % Neut # (Auto) 6.32 (1.40-6.50) K/uL Lymph # (Auto) 1.44 (1.20-3.40) K/uL Rock # (Auto) 0.54 (0.11-0.59) K/uL Eos # (Auto) 0.02 (0.00-0.50) K/uL Baso # (Auto) 0.01 (0.00-0.20) K/uL Immature Gran # (Auto) 0.04 (0.01-0.20) K/uL PT Cancelled INR Cancelled APTT Cancelled PTT Ratio Cancelled Sodium 136 (136-145) mmol/L Potassium 2.7 L (3.5-5.1) mmol/L Chloride 108 H (98-107) mmol/L Carbon Dioxide 19 L (21-32) mmol/L Anion Gap 9 (3-11) BUN 23 (6-23) mg/dl Creatinine 2.18 H (0.6-1.2) mg/dl Est Cr Clr Drug Dosing 19.8 ml/min eGFR 24.24 BUN/Creatinine Ratio 10.6 (10-20) Glucose 110 H (70-99(Fasting)) mg/dl Calcium 6.3 L (8.6-10.3) mg/dl Magnesium 1.0 L (1.7-2.4) mg/dl Total Bilirubin 0.3 (0.2-1.0) mg/dl AST 38 (13-39) U/L ALT 46 (7-52) U/L Alkaline Phosphatase 148 H (34-104) U/L Troponin I High Sens 20.5 H 20.6 H (0-14) pg/ml Total Protein 4.7 L (6.0-8.3) gm/dl Albumin 1.7 L (3.4-5.0) gm/dl Globulin 3.0 (2.5-4.0) gm/dl Albumin/Globulin Ratio 0.6 L (0.9-2) Urine Color Yellow Urine Appearance Cloudy A (Clear) Urine pH 5.5 (4.5-7.5) Ur Specific [place] 1.016 (1.000-1.030) Urine Protein 1+ H (Negative) Urine Glucose (UA) Negative (Negative) Urine Ketones Trace H (Negative) Urine Blood Trace H (Negative) Urine Nitrite Negative (Negative) Urine Bilirubin Negative (Negative) Urine Urobilinogen Negative (Negative) Ur Leukocyte Esterase 2+ H (Negative) Urine WBC (Auto) >50 H (0-5) /hpf Urine RBC (Auto) 0-2 (0-2) /hpf U Hyaline Cast (Auto) 11-20 H (0-2) /lpf U Epithel Cells (Auto) 6-10 H (0-2) /hpf Urine Bacteria (Auto) 4+ H (None Seen) Hyaline Casts Present A (None Presnt) /lpf Urine Comment Imaging Data Radiologist's Impression: Chest X-Ray 04/06/25 20:41 Exam(s): XR CXR 1 VIEW EXAM: XR Chest, 1 View CLINICAL HISTORY: Reason for exam: CP. TECHNIQUE: Frontal view of the chest. COMPARISON: December 20, 2008 FINDINGS: Lungs: Unremarkable. No acute infiltration, atelectasis or mass. Pleural space: Unremarkable. No pneumothorax or pleural fluid. Heart: Unremarkable. No cardiomegaly. Mediastinum: Unremarkable. Normal mediastinal contour. Bones/joints: No acute findings. IMPRESSION: No acute infiltration, atelectasis, or mass. Electronically signed by: Fracisco Ordonez MD 04/06/25 23:33 PM ECG Data Attestation: I personally reviewed and interpreted this ECG as follows: Indication: + tachycardia Rate (beats per minute): 110 Rhythm: + sinus tachycardia ECG Intervals/blocks: + Normal QRS, + Normal QT and + Normal SC ECG Hye: + Normal ECG Findings: + PACs Comparison ECG Date: from (02/10/2025) Change: the following changes noted (Frequent PACs are new ) Blood Pressure Blood Pressure Findings: Normal blood pressure MDM Narrative Patient is a 69-year-old female with history as seen above who presents for an episode of hypotension at home as well as chest pain that resolved prior to arrival. Her blood pressure on arrival here today is 117/78 without any intervention. Otherwise hemodynamically stable. EKG without any ischemic signs noted. Chest pain-free upon arrival here in the ED. Lab work was obtained today. Evidence of mild MARY with a creatinine of 2.18. Also noted to be hypokalemic with potassium of 2.7. She has a history of hypokalemia secondary to her prior small bowel surgery. IV potassium as well as IV fluids were given as elevated creatinine likely prerenal. Mild elevation in troponin of 20.6. No ischemic changes on EKG and this is likely secondary to demand ischemia in the setting of her MARY. Will have inpatient team trend troponin. Orthostatic vital signs are nondiagnostic today. Stable for admission to the hospitalist service for MRAY/hyperkalemia/NSTEMI. Impression & Plan MARY (acute kidney injury), Hypokalemia, Chest pain Discharge Plan Visit Data Chief Complaint: Cardiac Assessment Stated Complaint: LOW BP, CHEST PAIN SINCE EVENING ED Provider: Scott Billings Discharge Problem: MARY (acute kidney injury), Hypokalemia, Chest pain Patient Disposition: Admitted As Inpatient Condition: Good Forms Stand Alone Forms: My [facility] [employer] Prescriptions Prescriptions: No Action Multiple Vitamin-Minerals Tablet 1 tab PO QAM potassium chloride 20 mEq tablet,ER particles/crystals 20 meq PO QAM rosuvastatin 20 mg tablet 20 mg PO HS Eliquis 5 mg tablet 5 mg PO BID Qty: 74 0RF aspirin 81 mg Tablet,Delayed Release (Dr/Ec) 81 mg PO DAILY budesonide 3 mg capsule,delayed,extend.release 3 mg PO QAM pantoprazole [Protonix] 40 mg tablet,delayed release (DR/EC) 40 mg PO QAM Referrals Referrals: Henry Griffin MD [Primary Care Provider] -
[2025-04-06] MEDS: POTASSIUM CHLORIDE / WTR 10 MEQ/100 ML PLCT IV SCH (22:25)
[2025-04-06] MEDS: POTASSIUM CHLORIDE CRTAB 20 MEQ TABCR PO STA (22:25)
[2025-04-06] MEDS: SODIUM CHLORIDE 0.9% 1,000 ML IV ONE (22:25)
[2025-04-06 22:29] LABS: Magnesium 1.0 mg/dl (1.7-2.4)
--- NOTE | 2025-04-06 23:34 | XRay Report ---
Exam(s): XR CXR 1 VIEW EXAM: XR Chest, 1 View CLINICAL HISTORY: Reason for exam: CP. TECHNIQUE: Frontal view of the chest. COMPARISON: December 20, 2008 FINDINGS: Lungs: Unremarkable. No acute infiltration, atelectasis or mass. Pleural space: Unremarkable. No pneumothorax or pleural fluid. Heart: Unremarkable. No cardiomegaly. Mediastinum: Unremarkable. Normal mediastinal contour. Bones/joints: No acute findings. IMPRESSION: No acute infiltration, atelectasis, or mass. Electronically signed by: Fracisco Ordonez MD 04/06/25 23:33 PM
[2025-04-07] MEDS: MAGNESIUM SULFATE / D5W 1 GM/100 ML BAG IV SCH (00:25)
[2025-04-07 00:37] LABS: INR 1.5 (0.9-1.1); Partial Thromboplastin Time 34 Seconds (21-31); Prothrombin Time 15.7 Seconds (9.0-12.0)
--- NOTE | 2025-04-07 00:40 | History & Physical Report ---
Date of Service April 07, 2025 Assessment & Plan (1) Chest pain: Plan: 69-year-old female with past medical history significant for Crohn's disease status post bowel resection 10/2024 with 40 cm bowel removed, nutritional deficiency, history of hypokalemia, history of DVT, CKD stage III, hyperlipidemia, chronic malnutrition presents with dizziness and chest pain. Patient states since morning she was feeling lightheaded and blood pressure was low. In the evening at 7 PM she had 1 moment of sharp chest pain which prompted her to come to the ER. Chest pain went away immediately. In the ER she was initially tachycardic. She was hypokalemic and hypomagnesia and MARY. Patient says she has chronic diarrhea from Crohn's disease. Denies any blood in the stools. Denies any nausea or vomiting. States appetite is okay. Denies any abdominal pain. No chest pain currently. No shortness of breath. No headache. No runny nose or sore throat. No fevers. Currently hemodynamics are okay. Chest pain For short period of time Currently chest pain-free Initial troponin 20.5 and repeat is 20.6 will follow serial cardiac enzymes and repeat EKG If trending up will get echo and cardiac consult Dizziness Hypotension Probably dehydration Currently blood pressure is okay Will monitor MARY Creatinine 2.18 Baseline creatinine 1.1 Possible from ongoing diarrhea and dehydration Avoid nephrotoxic agents IV fluids Will follow repeat labs Hypokalemia and hypomagnesia Will replace Continue home potassium supplements Will follow labs Chron's disease Status post bowel resection Ongoing diarrhea Continue budesonide Patient says has plans to start on Entyvio Follow-up with GI GERD Protonix History of DVT On Eliquis Hyperlipidemia On statin Disposition Med/telemetry Full code History of Present Illness Chief Complaint: Dizziness, hypokalemia, hypomagnesia Primary Care Provider: Henry Griffin MD 69-year-old female with past medical history significant for Crohn's disease status post bowel resection 10/2024 with 40 cm bowel removed, nutritional deficiency, history of hypokalemia, history of DVT, CKD stage III, hyperlipidemia, chronic malnutrition presents with dizziness and chest pain. Patient states since morning she was feeling lightheaded and blood pressure was low. In the evening at 7 PM she had 1 moment of sharp chest pain which prompted her to come to the ER. Chest pain went away immediately. In the ER she was initially tachycardic. She was hypokalemic and hypomagnesia and MARY. Patient says she has chronic diarrhea from Crohn's disease. Denies any blood in the stools. Denies any nausea or vomiting. States appetite is okay. Denies any abdominal pain. No chest pain currently. No shortness of breath. No headache. No runny nose or sore throat. No fevers. Currently hemodynamics are okay. Past medical history. As mentioned above. Past surgical history. Laparoscopic left oophorectomy. History of colectomy in late . Bowel resection in 2024. EGD. Colonoscopy tonsillectomy. Social history. Smokes half pack of cigarettes daily. Drinks alcohol. No drug use. Family history. Father had CAD. Maternal aunt had breast cancer. Mother had arthritis. Allergies Allergy/AdvReac Type Severity Reaction Status Date / Time hydromorphone AdvReac Intermediate shaky, Verified 04/06/25 22:32 cold sweats, "loopy-like" Home Medications Medication Instructions Recorded Confirmed Type multivitamin with minerals 1 tab PO QAM 02/05/22 04/06/25 History (Multiple Vitamin-Minerals tablet) potassium chloride 20 mEq 20 meq PO QAM 02/05/22 04/06/25 History tablet,extended release(part/cryst) rosuvastatin 20 mg tablet 20 mg PO HS 02/10/25 04/06/25 History apixaban 5 mg tablet (Eliquis) 5 mg PO BID #74 tabs 02/13/25 04/06/25 Rx aspirin 81 mg tablet,delayed 81 mg PO DAILY 04/06/25 04/06/25 History release budesonide 3 mg 3 mg PO QAM 04/06/25 04/06/25 History capsule,delayed,extended release pantoprazole 40 mg tablet,delayed 40 mg PO QAM 04/06/25 04/06/25 History release (Protonix) Past Med/Surg History Problem List (Updated 04/07/25 @ 00:27 by Scott Billings MD) Chest pain (Acute) Hypomagnesemia (Acute) DVT (deep venous thrombosis) (Acute) Short gut syndrome Malabsorption MARY (acute kidney injury) (Acute) Chronic malnutrition DVT (deep venous thrombosis) Dizziness Encounter for pre-operative examination Crohn's disease (Chronic) Abdominal pain (Acute) Diarrhea (Acute) History of Crohn's disease (Acute) Hypokalemia (Acute) Medical History Stage 3a chronic kidney disease (CKD) Barretts esophagus History of palpitations beginning 12/2021, chest pain, went to ER, did EKG, and there were no findings>attributed to her gallbladder History of COVID-19 end 11/2021, had test thru work; stuffy nose>resolved. History of anesthesia problem medications that are meant to make me tired/sleepy work opposite, they "make me wired" Hyperlipemia CD (Crohn's disease) Hypertension Surgical History Hx of laparoscopy w/LT oophorectomy Hx of colectomy in the late , had 10" bowel removed due to Crohn's History of esophagogastroduodenoscopy (EGD) Hx of colonoscopy Hx of tonsillectomy Social History Smoking Status: Current every day smoker Tobacco Type: Cigarettes Cigarettes Per Day: half pack; Second Hand Exposure: No; Do You Dip or Chew Tobacco: No; Tobacco Cessation Education Requested by Patient: No Hx Alcohol Use: No Hx Substance Use: No Preferred Language: Romansh Communication Ability: Effective Population Health Manager Required: No Beliefs That Will Affect Care: None Current Living Situation: Spouse Current Living Situation Comment: one story home with Other Information That Helps Us Care for You: No Feels Safe at Home: Yes Safety Concerns: Feels Safe At This Time Assistive Devices: Denture - Upper, Glasses, Hearing Aid - Bilateral and Walker Assistive Devices Comment: walker and hearing aids left at home Review of Systems Review of Systems: All systems reviewed & are unremarkable except as noted in HPI & below Physical Exam Physical Exam: General- Not in distress Head- atraumatic Eyes- PERRL. ENT- oropharynx clear Neck- supple, no JVD. Lungs- clear to auscultation no wheezing or crackles Heart- regular rhythm; no murmur, no gallop. Abdomen- normal bowel sounds, soft, nontender, no distension Extremities- no pretibial edema, no erythema seen Neuro- alert, oriented PERRL, no facial palsy; no dysarthria; moves extremities Results & Data Results & Data Vital Signs (Past 12 Hours) Vital Signs Pulse Pulse Resp BP BP Pulse Ox O2 Del Method 04/07/25 00:01 81 04/06/25 22:17 95 H 18 136/74 94 Room Air 04/06/25 20:40 Room Air 04/06/25 20:40 100 H 95 Room Air 04/06/25 20:40 120 H 16 132/85 96 Room Air 04/06/25 20:20 80 19 117/78 Diagnostic Findings Laboratory Results WBC 8.37 K/ul (4.8-10.8) 04/06/25 21:06 RBC 3.44 M/uL (4.20-5.40) L 04/06/25 21:06 Hgb 11.1 g/dL (12.0-16.0) L 04/06/25 21:06 Hct 31.4 % (37.0-47.0) L 04/06/25 21:06 MCV 91.3 fL (80.0-100.0) 04/06/25 21:06 MCH 32.3 pg (25.0-34.0) 04/06/25 21:06 MCHC 35.4 g/dL (32.0-36.0) 04/06/25 21:06 RDW Std Deviation 49.9 fL (36.4-46.3) H 04/06/25 21:06 RDW Coeff of Bell 14.8 % (11.5-14.5) H 04/06/25 21:06 Plt Count 320 K/uL (130-400) 04/06/25 21:06 MPV 9.1 fL (9.4-12.4) L 04/06/25 21:06 Immature Gran % (Auto) 0.5 % 04/06/25 21:06 Neut % (Auto) 75.5 % 04/06/25 21:06 Lymph % (Auto) 17.2 % 04/06/25 21:06 [place] % (Auto) 6.5 % 04/06/25 21:06 Eos % (Auto) 0.2 % 04/06/25 21:06 Baso % (Auto) 0.1 % 04/06/25 21:06 Neut # (Auto) 6.32 K/uL (1.40-6.50) 04/06/25 21:06 Lymph # (Auto) 1.44 K/uL (1.20-3.40) 04/06/25 21:06 [place] # (Auto) 0.54 K/uL (0.11-0.59) 04/06/25 21:06 Eos # (Auto) 0.02 K/uL (0.00-0.50) 04/06/25 21:06 Baso # (Auto) 0.01 K/uL (0.00-0.20) 04/06/25 21:06 Immature Gran # (Auto) 0.04 K/uL (0.01-0.20) 04/06/25 21:06 PT 15.7 Seconds (9.0-12.0) H 04/06/25 23:35 INR 1.5 (0.9-1.1) H 04/06/25 23:35 APTT 34 Seconds (21-31) H 04/06/25 23:35 PTT Ratio 1.3 04/06/25 23:35 Sodium 136 mmol/L (136-145) 04/06/25 21:06 Potassium 2.7 mmol/L (3.5-5.1) L 04/06/25 21:06 Chloride 108 mmol/L (98-107) H 04/06/25 21:06 Carbon Dioxide 19 mmol/L (21-32) L 04/06/25 21:06 Anion Gap 9 (3-11) 04/06/25 21:06 BUN 23 mg/dl (6-23) 04/06/25 21:06 Creatinine 2.18 mg/dl (0.6-1.2) H 04/06/25 21:06 Est Cr Clr Drug Dosing 19.8 ml/min 04/06/25 21:06 eGFR 24.24 04/06/25 21:06 BUN/Creatinine Ratio 10.6 (10-20) 04/06/25 21:06 Glucose 110 mg/dl (70-99(Fasting)) H 04/06/25 21:06 Calcium 6.3 mg/dl (8.6-10.3) L 04/06/25 21:06 Magnesium 1.0 mg/dl (1.7-2.4) L 04/06/25 21:06 Total Bilirubin 0.3 mg/dl (0.2-1.0) 04/06/25 21:06 AST 38 U/L (13-39) 04/06/25 21:06 ALT 46 U/L (7-52) 04/06/25 21:06 Alkaline Phosphatase 148 U/L (34-104) H 04/06/25 21:06 Troponin I High Sens 20.6 pg/ml (0-14) H 04/06/25 23:35 Total Protein 4.7 gm/dl (6.0-8.3) L 04/06/25 21:06 Albumin 1.7 gm/dl (3.4-5.0) L 04/06/25 21:06 Globulin 3.0 gm/dl (2.5-4.0) 04/06/25 21:06 Albumin/Globulin Ratio 0.6 (0.9-2) L 04/06/25 21:06 Urine Color Yellow 04/06/25 20:35 Urine Appearance Cloudy (Clear) A 04/06/25 20:35 Urine pH 5.5 (4.5-7.5) 04/06/25 20:35 Ur Specific [place] 1.016 (1.000-1.030) 04/06/25 20:35 Urine Protein 1+ (Negative) H 04/06/25 20:35 Urine Glucose (UA) Negative (Negative) 04/06/25 20:35 Urine Ketones Trace (Negative) H 04/06/25 20:35 Urine Blood Trace (Negative) H 04/06/25 20:35 Urine Nitrite Negative (Negative) 04/06/25 20:35 Urine Bilirubin Negative (Negative) 04/06/25 20:35 Urine Urobilinogen Negative (Negative) 04/06/25 20:35 Ur Leukocyte Esterase 2+ (Negative) H 04/06/25 20:35 Urine WBC (Auto) >50 /hpf (0-5) H 04/06/25 20:35 Urine RBC (Auto) 0-2 /hpf (0-2) 04/06/25 20:35 U Hyaline Cast (Auto) 11-20 /lpf (0-2) H 04/06/25 20:35 U Epithel Cells (Auto) 6-10 /hpf (0-2) H 04/06/25 20:35 Urine Bacteria (Auto) 4+ (None Seen) H 04/06/25 20:35 Hyaline Casts Present /lpf (None Presnt) A 04/06/25 20:35 Urine Comment 04/06/25 20:35 Impressions Chest X-Ray 04/06/25 20:41 Exam(s): XR CXR 1 VIEW EXAM: XR Chest, 1 View CLINICAL HISTORY: Reason for exam: CP. TECHNIQUE: Frontal view of the chest. COMPARISON: December 20, 2008 FINDINGS: Lungs: Unremarkable. No acute infiltration, atelectasis or mass. Pleural space: Unremarkable. No pneumothorax or pleural fluid. Heart: Unremarkable. No cardiomegaly. Mediastinum: Unremarkable. Normal mediastinal contour. Bones/joints: No acute findings. IMPRESSION: No acute infiltration, atelectasis, or mass. Electronically signed by: Fracisco Ordonez MD 04/06/25 23:33 PM Code Status & VTE Plan VTE Prophylaxis Plan VTE Prophylaxis will be ordered: Yes
[2025-04-07] MEDS ORDERED: NITROGLYCERIN SL 0.4 MG/TAB TAB SL PRN (04:07)
[2025-04-07] MEDS ORDERED: ACETAMINOPHEN 325 MG TAB PO PRN (04:07)
[2025-04-07 05:13] LABS: Hematocrit (blood only) 30.5 % (37.0-47.0); Hemoglobin 10.9 g/dL (12.0-16.0); Immature Granulocytes # (auto) 0.06 K/uL (0.01-0.20); Immature Granulocytes % (auto) 0.7 %; Mean Corpuscular Hemoglobin 32.2 pg (25.0-34.0); Mean Corpuscular Volume 90.2 fL (80.0-100.0); Platelet Count 288 K/uL (130-400); RDW Standard Deviation 48.1 fL (36.4-46.3); Red Blood Count 3.38 M/uL (4.20-5.40); White Blood Count 8.43 K/ul (4.8-10.8)
[2025-04-07] MEDS: D5W AND NSS 1,000 ML IV SCH (05:25)
[2025-04-07 05:31] LABS: Anion Gap 8.0 (3-11); Calcium 6.4 mg/dl (8.6-10.3); Carbon Dioxide 15.0 mmol/L (21-32); Chloride 111.0 mmol/L (98-107); Magnesium 1.8 mg/dl (1.7-2.4); Potassium 2.9 mmol/L (3.5-5.1); Sodium 134.0 mmol/L (136-145)
[2025-04-07 05:37] LABS: Blood Urea Nitrogen 21.0 mg/dl (6-23); Creatinine Clr Calc Pharmacy 24.4 ml/min; Glucose 90.0 mg/dl (70-99(Fasting))
[2025-04-07] MEDS: POTASSIUM CHLORIDE CRTAB 20 MEQ TABCR PO SCH ×2 (10:30→14:25)
--- NOTE | 2025-04-07 12:24 | Communication Note ---
Date of Service: April 07, 2025 Patient seen and examined at bedside. She is comfortable; not in distress. Reports that the diarrhea has improved compared to previous day. Patient is getting IV fluid and potassium On physical examination; Constitutional: WD/WN, vitals as above, NAD, sitting up in bed, pleasant, conversing easily Respiratory: normal respiratory effort, lungs clear to auscultation, no wheeze, rales, rhonchi. Normal insp/exp effort, no accessory muscle use Cardiovascular: RRR, no murmur, no edema Vessels: no JVD or carotid bruit Chest: normal inspection of chest Abdomen: normal bowel sounds, soft, nontender, no hepatosplenomegaly Musculoskeletal: no cyanosis or clubbing, extremities motor strength 5/5 Skin: no rashes, warm and dry normal turgor Neurologic: PERRL, EOMI, accommodation nl, no face palsy, no dysarthria CN's II- XI intact bilaterally and moves all extremities Assessment/plan Hypotension Acute kidney injury Hypokalemia Hypomagnesemia Patient presents with a history of chronic diarrhea, low blood pressure. Found to have MARY, electrolyte disturbances Continue IV fluids, continue to replenish electrolytes Possible UTIcontinue on ceftriaxone; will follow-up on culture results Demand ischemiahigh sensitive troponin elevated on admission; denies chest pain at the time. Will obtain echocardiogram full progress note to follow tomorrow Please note the above document was generated using voice recognition software. It may contain grammatical, syntax or spelling errors. Any formal questions or concerns about the content, text or information contained within the body of this dictation should be directly addressed to the provider for clarification
[2025-04-07] MEDS: cefTRIAXone SODIUM 2,000 MG/50 ML BAG IV SCH (13:59)
[2025-04-07] MEDS: ASPIRIN 81 MG ECTAB PO SCH (14:00)
[2025-04-07] MEDS: BUDESONIDE EC 3 MG CAP PO SCH (14:00)
[2025-04-07] MEDS: APIXABAN 5 MG TABLET PO SCH (14:00)
[2025-04-07] MEDS: CEROVITE ADV FORMULA TAB PO SCH (14:01)
--- NOTE | 2025-04-07 14:16 | XCELERA ---
[id number]
[2025-04-07] MEDS: POTASSIUM CHLORIDE PWD 20 MEQ PACK PO ONE (14:52)
[2025-04-07] MEDS: ROSUVASTATIN CALCIUM 20 MG TAB PO SCH (20:35)
[2025-04-08] MEDS ORDERED: Nursing to Pharmacy Communication SCH (03:30)
[2025-04-08 06:46] LABS: Hematocrit (blood only) 32.1 % (37.0-47.0); Hemoglobin 11.1 g/dL (12.0-16.0); Immature Granulocytes # (auto) 0.05 K/uL (0.01-0.20); Immature Granulocytes % (auto) 0.5 %; Mean Corpuscular Hemoglobin 31.8 pg (25.0-34.0); Mean Corpuscular Volume 92.0 fL (80.0-100.0); Platelet Count 322 K/uL (130-400); RDW Standard Deviation 50.5 fL (36.4-46.3); Red Blood Count 3.49 M/uL (4.20-5.40); White Blood Count 9.11 K/ul (4.8-10.8)
[2025-04-08 07:11] LABS: Anion Gap 6.0 (3-11); Carbon Dioxide 15.0 mmol/L (21-32); Chloride 115.0 mmol/L (98-107); Potassium 3.8 mmol/L (3.5-5.1); Sodium 136.0 mmol/L (136-145)
[2025-04-08 07:12] LABS: Blood Urea Nitrogen 16.0 mg/dl (6-23); Calcium 6.5 mg/dl (8.6-10.3); Creatinine Clr Calc Pharmacy 38.8 ml/min; Glucose 123.0 mg/dl (70-99(Fasting)); Magnesium 1.5 mg/dl (1.7-2.4)
[2025-04-08] MEDS: MAGNESIUM SULFATE / D5W 1 GM/100 ML BAG IV SCH (07:55)
--- NOTE | 2025-04-08 09:45 | Electrocardiogram Report ---
Test Reason : Blood Pressure : */* mmHG Vent. Rate : 86 BPM Atrial Rate : 86 BPM P-R Int : 128 ms QRS Dur : 64 ms QT Int : 382 ms P-R-T Axes : 62 19 -11 degrees QTcB Int : 457 ms Sinus rhythm with Premature atrial complexes Possible Anterior infarct (cited on or before 10-Feb-2025) Abnormal ECG When compared with ECG of 10-Feb-2025 13:26, Premature atrial complexes are now Present Questionable change in initial forces of Septal leads T wave inversion now evident in Inferior leads Confirmed by Ghanshyam Ely ([id number]) on 04/08/2025 9:45:36 AM Referred By: REFERRED SELF Confirmed By: Ghanshyam Ely
[2025-04-08] MEDS: FUROSEMIDE INJ 20 MG/2 ML VIAL IV ONE (12:14)
--- NOTE | 2025-04-08 12:23 | Hospitalist Progress Note ---
Date of Service April 08, 2025 Assessment & Plan (1) Chest pain: Plan: 69-year-old female with past medical history significant for Crohn's disease status post bowel resection 10/2024 with 40 cm bowel removed, nutritional deficiency, history of hypokalemia, history of DVT, CKD stage III, hyperlipidemia, chronic malnutrition Presented with low blood pressure Hypotension Acute kidney injury Hypokalemia Hypomagnesemia Patient presents with a history of chronic diarrhea, low blood pressure. Found to have MARY, electrolyte disturbances given iv fluids continue potassium supplements noted to have significant b/l pitting edema; likely due to low albumin level and fluids; given iv lasix Acute UTIcontinue on ceftriaxone; Urine cx growing klebsiella Demand ischemiahigh sensitive troponin elevated on admission; denies chest pain at the time. Echo shows EF of 55-60%; mild hypokinesis of inf post wall at the base. continue on rosuvastatin and aspirin Chron's disease Status post bowel resection Ongoing diarrhea Continue budesonide Patient says has plans to start on Entyvio Follow-up with GI GERD Protonix-continue History of DVT On Eliquis-continue Hyperlipidemia On statin-continue Disposition Med/telemetry Full code Time spent evaluating patient, direct bedside care, chart review, placing orders, interpretation of diagnostic studies, discussion with consultants, patient, and family members, as well as other required patient management activities is 50 minutes Please note the above document was generated using voice recognition software. It may contain grammatical, syntax or spelling errors. Any formal questions or concerns about the content, text or information contained within the body of this dictation should be directly addressed to the provider for clarification Admission and Anticipated Discharge Date Admission Date: April 07, 2025 Subjective Patient seen and examined at bedside. She denies any pain or discomfort. Reports that she has significant bilateral edema that has caused difficulty in walking. Review of Systems Review of Systems: All systems reviewed & are unremarkable except as noted in Subjective Physical Exam Physical Exam: General- Not in distress Head- atraumatic Eyes- PERRL. ENT- oropharynx clear Neck- supple, no JVD. Lungs- clear to auscultation no wheezing or crackles Heart- regular rhythm; no murmur, no gallop. Abdomen- normal bowel sounds, soft, nontender, no distension Extremities- Bilateral 2+ pitting edema present Neuro- alert, oriented PERRL, no facial palsy; no dysarthria; moves extremities Results & Data Results & Data Vital Signs (Past 12 Hours) Vital Signs Temp Pulse Resp BP Pulse Ox O2 Del Method O2 Flow Rate 04/08/25 11:55 36.6 C 106 H 20 158/90 H 96 Nasal Cannula 2 04/08/25 03:16 36.8 C 68 12 142/86 H 96 Room Air
[2025-04-08] MEDS ORDERED: FUROSEMIDE INJ 20 MG/2 ML VIAL IV ONE (14:00)
--- NOTE | 2025-04-09 09:46 | Electrocardiogram Report ---
Test Reason : Blood Pressure : */* mmHG Vent. Rate : 72 BPM Atrial Rate : 72 BPM P-R Int : 116 ms QRS Dur : 68 ms QT Int : 410 ms P-R-T Axes : 52 51 18 degrees QTcB Int : 448 ms Normal sinus rhythm Low voltage QRS Borderline ECG When compared with ECG of 08-Apr-2025 05:57, Premature atrial complexes are no longer Present Nonspecific T wave abnormality has replaced inverted T waves in Inferior leads T wave amplitude has increased in Anterolateral leads Confirmed by Ghanshyam Ely ([id number]) on 04/09/2025 9:45:56 AM Referred By: REFERRED SELF Confirmed By: Ghanshyam Ely
[2025-04-09 10:41] LABS: Hematocrit (blood only) 35.5 % (37.0-47.0); Hemoglobin 11.6 g/dL (12.0-16.0); Immature Granulocytes # (auto) 0.07 K/uL (0.01-0.20); Immature Granulocytes % (auto) 0.7 %; Mean Corpuscular Hemoglobin 31.4 pg (25.0-34.0); Mean Corpuscular Volume 95.9 fL (80.0-100.0); Platelet Count 320 K/uL (130-400); RDW Standard Deviation 52.6 fL (36.4-46.3); Red Blood Count 3.70 M/uL (4.20-5.40); White Blood Count 10.20 K/ul (4.8-10.8)
[2025-04-09 10:59] LABS: Anion Gap 3.0 (3-11); Blood Urea Nitrogen 14.0 mg/dl (6-23); Calcium 7.4 mg/dl (8.6-10.3); Carbon Dioxide 16.0 mmol/L (21-32); Chloride 114.0 mmol/L (98-107); Creatinine Clr Calc Pharmacy 29.6 ml/min; Glucose 99.0 mg/dl (70-99(Fasting)); Potassium 6.1 mmol/L (3.5-5.1); Sodium 133.0 mmol/L (136-145)
--- NOTE | 2025-04-09 11:22 | CT Scan Report ---
Clinical history: Evaluate for fractures Technique: Axial computed tomography images were obtained of the left ankle without intravenous contrast. Sagittal and coronal reconstructions were obtained Findings: No fracture is identified. No subluxation or dislocation is seen. There are no significant arthritic changes. There is a small dorsal calcaneal spur. There are scattered lucencies within the distal tibia and fibula, likely due to osteopenia. No definite focal osseous lesion is evident The visualized musculature appears unremarkable. There is diffuse subcutaneous edema. No definite soft tissue mass or focal fluid collection is seen. No foreign body is evident Impression: No definite fracture Electronically signed by Alexandru Sibley 04-09-2025 11:22 AM
[2025-04-09] MEDS: CALCIUM GLUCONATE 1,000 MG/60 ML BAG IV STA (11:32)
[2025-04-09] MEDS: DEXTROSE 50% 50 ML SYRINGE IV ONE (11:50)
[2025-04-09] MEDS: INSULIN HUMAN REGULAR PER UNIT 5 UNITS in SYRINGE 4.95 ML IV ONE (11:50)
[2025-04-09] MEDS: SODIUM ZIRCONIUM CYCLOSILICATE 10 GM PACKET PO ONE (11:51)
--- NOTE | 2025-04-09 12:12 | Hospitalist Progress Note ---
Date of Service April 09, 2025 Assessment & Plan (1) Chest pain: Plan: 69-year-old female with past medical history significant for Crohn's disease status post bowel resection 10/2024 with 40 cm bowel removed, nutritional deficiency, history of hypokalemia, history of DVT, CKD stage III, hyperlipidemia, chronic malnutrition Presented with low blood pressure Hypotension Acute kidney injury Hypomagnesemia Patient presents with a history of chronic diarrhea, low blood pressure. Found to have MARY, electrolyte disturbances given iv fluids With improvement in creatinine. Hyperkalemianoted to have serum potassium of 6.1 on 04/09/2025. Ordered Lasix 10 mg IV, calcium gluconate, Lokelma, insulin plus dextrose. Will repeat BMP in evening. DC potassium supplement for now Acute UTIcontinue on ceftriaxone; Urine cx growing klebsiella; treat for total of 5 days Demand ischemiahigh sensitive troponin elevated on admission; denies chest pain at the time. Echo shows EF of 55-60%; mild hypokinesis of inf post wall at the base. continue on rosuvastatin and aspirin Chron's disease Status post bowel resection Ongoing diarrhea Continue budesonide Patient says has plans to start on Entyvio Follow-up with GI I discussed that patient's lower extremity edema, significant low albumin is likely due to malabsorption/recent surgery. Discussion was done with patient and patient's daughter to replete electrolytes after each diarrhea with Pedialyte. I also discussed increasing protein intake. They both verbalized understanding. GERD Protonix-continue History of DVT On Eliquis-continue Hyperlipidemia On statin-continue Disposition Med/telemetry Full code Time spent evaluating patient, direct bedside care, chart review, placing orders, interpretation of diagnostic studies, discussion with consultants, patient, and family members, as well as other required patient management activities is 50 minutes Please note the above document was generated using voice recognition software. It may contain grammatical, syntax or spelling errors. Any formal questions or concerns about the content, text or information contained within the body of this dictation should be directly addressed to the provider for clarification Admission and Anticipated Discharge Date Admission Date: April 07, 2025 Subjective Patient seen and examined at bedside. She reports that she has pain in her left ankle on weightbearing. Review of Systems Review of Systems: All systems reviewed & are unremarkable except as noted in Subjective Physical Exam Physical Exam: General- Not in distress Head- atraumatic Eyes- PERRL. ENT- oropharynx clear Neck- supple, no JVD. Lungs- clear to auscultation no wheezing or crackles Heart- regular rhythm; no murmur, no gallop. Abdomen- normal bowel sounds, soft, nontender, no distension Extremities- Bilateral 1+ pitting edema present; painful ROM on left ankle Neuro- alert, oriented PERRL, no facial palsy; no dysarthria; moves extremities Results & Data Results & Data Vital Signs (Past 12 Hours) Vital Signs Temp Pulse Pulse Resp BP BP Pulse Ox 04/09/25 11:34 36.6 C 72 20 120/78 98 04/09/25 08:00 78 04/09/25 07:57 36.7 C 82 18 138/83 97 04/09/25 03:37 36.4 C L 78 14 137/75 98 O2 Del Method 04/09/25 11:34 Room Air 04/09/25 08:00 04/09/25 07:57 Room Air 04/09/25 03:37 Room Air
[2025-04-09] MEDS: FUROSEMIDE INJ 20 MG/2 ML VIAL IV ONE (12:32)
[2025-04-09 16:51] LABS: Anion Gap 2.0 (3-11); Blood Urea Nitrogen 12.0 mg/dl (6-23); Calcium 7.4 mg/dl (8.6-10.3); Carbon Dioxide 19.0 mmol/L (21-32); Chloride 112.0 mmol/L (98-107); Creatinine Clr Calc Pharmacy 27.6 ml/min; Glucose 86.0 mg/dl (70-99(Fasting)); Potassium 5.4 mmol/L (3.5-5.1); Sodium 133.0 mmol/L (136-145)
[2025-04-10 08:56] LABS: Anion Gap 2.0 (3-11); Blood Urea Nitrogen 10.0 mg/dl (6-23); Calcium 7.2 mg/dl (8.6-10.3); Carbon Dioxide 21.0 mmol/L (21-32); Chloride 111.0 mmol/L (98-107); Creatinine Clr Calc Pharmacy 33.8 ml/min; Glucose 69.0 mg/dl (70-99(Fasting)); Potassium 4.7 mmol/L (3.5-5.1); Sodium 134.0 mmol/L (136-145)
[2025-04-10] MEDS: LACTATED RINGER'S 500 ML IV ONE (08:59)
--- NOTE | 2025-04-10 09:51 | Gastrointestinal Consultation ---
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 Reportedly she is transitioning to Entyvio. Colonoscopy planned several weeks from now with [facility]. Supervising Physician Co-Signing Physician Notes I saw and examined this patient with our nurse practitioner and agree with her assessment and plan. Patient insists that the diarrhea she presently experiences is her normal chronic frequency. We suggested a trial of cholestyramine if she wants. Otherwise continue her present Crohn's medications. She plans to follow-up with her GI team regarding biologic therapy with Entyvio. Would rule out infectious etiologies. History of Present Illness Reason for Consultation: Diarrhea Attending Physician: Manuel Santiago MD History of Present Illness Patient is a 69 yo female with PMH of Crohn's disease of the small intestine s/p resection in October 2024. She is here for chest discomfort. GI involved due to diarrhea. Patient notes chronic diarrhea since her resection. She is seeing [facility] and is currently on Budesonide 3 mg daily with plans to transition to Entyvio. She is planning an outpatient colonoscopy in April with [facility]. Bowels are moving 6+ times per day with loose stool--but she notes that this is her baseline. She has a history of cholecystectomy as well. No stool studies from this admission. H/H 11.6/35.5. BUN 10, Cr 1.22. K 4.7 this AM. Albumin 1.7. Appetite/po intake is poor. Allergies Allergy/AdvReac Type Severity Reaction Status Date / Time hydromorphone AdvReac Intermediate shaky, Verified 04/06/25 22:32 cold sweats, "loopy-like" Home Medications Medication Instructions Recorded Confirmed Type multivitamin with minerals 1 tab PO QAM 02/05/22 04/06/25 History (Multiple Vitamin-Minerals tablet) potassium chloride 20 mEq 20 meq PO QAM 02/05/22 04/06/25 History tablet,extended release(part/cryst) rosuvastatin 20 mg tablet 20 mg PO HS 02/10/25 04/06/25 History apixaban 5 mg tablet (Eliquis) 5 mg PO BID #74 tabs 02/13/25 04/06/25 Rx aspirin 81 mg tablet,delayed 81 mg PO DAILY 04/06/25 04/06/25 History release budesonide 3 mg 3 mg PO QAM 04/06/25 04/06/25 History capsule,delayed,extended release pantoprazole 40 mg tablet,delayed 40 mg PO QAM 04/06/25 04/06/25 History release (Protonix) Patient History Medical History Hypocalcemia Stage 3a chronic kidney disease (CKD) Barretts esophagus History of palpitations beginning 12/2021, chest pain, went to ER, did EKG, and there were no findings>attributed to her gallbladder History of COVID-19 end 11/2021, had test thru work; stuffy nose>resolved. History of anesthesia problem medications that are meant to make me tired/sleepy work opposite, they "make me wired" Hyperlipemia CD (Crohn's disease) Hypertension Surgical History Hx of laparoscopy w/LT oophorectomy Hx of colectomy in the late , had 10" bowel removed due to Crohn's History of esophagogastroduodenoscopy (EGD) Hx of colonoscopy Hx of tonsillectomy Social History Smoking Status: Current every day smoker Tobacco Type: Cigarettes Cigarettes Per Day: half pack; Second Hand Exposure: No; Do You Dip or Chew Tobacco: No; Tobacco Cessation Education Requested by Patient: No Hx Alcohol Use: No Hx Substance Use: No Preferred Language: Serbian Communication Ability: Effective Grease Man Required: No Beliefs That Will Affect Care: None Current Living Situation: Spouse Current Living Situation Comment: one story home with Other Information That Helps Us Care for You: No Feels Safe at Home: Yes Safety Concerns: Feels Safe At This Time Assistive Devices: Walker Assistive Devices Comment: walker and hearing aids left at home Review of Systems Constitutional: + fatigue; no fever and no chills Gastrointestinal: + diarrhea/loose stools Physical Exam Gastrointestinal (Abdomen): normal bowel sounds, soft, nontender, no hepatosplenomegaly Results & Data Vital Signs (Past 12 Hours) Vital Signs Temp Pulse Pulse Resp BP BP Pulse Ox 04/10/25 08:55 86/63 L 04/10/25 07:20 86 04/10/25 07:20 36.9 C 81 18 116/69 99 04/10/25 03:46 37.0 C 77 20 118/66 97 04/09/25 23:30 36.7 C 92 H 16 126/76 97 04/09/25 22:08 74 O2 Del Method 04/10/25 08:55 04/10/25 07:20 04/10/25 07:20 Room Air 04/10/25 03:46 Room Air 04/09/25 23:30 Room Air 04/09/25 22:08 Laboratory Results Laboratory Results - last 48 hr 04/09/25 04/09/25 04/10/25 10:10 16:13 08:07 WBC 10.20 RBC 3.70 L Hgb 11.6 L Hct 35.5 L MCV 95.9 MCH 31.4 MCHC 32.7 RDW Std Deviation 52.6 H RDW Coeff of Bell 15.1 H Plt Count 320 MPV 9.9 Immature Gran % (Auto) 0.7 Neut % (Auto) 83.3 Lymph % (Auto) 9.9 [place] % (Auto) 5.3 Eos % (Auto) 0.4 Baso % (Auto) 0.4 Neut # (Auto) 8.50 H Lymph # (Auto) 1.01 L [place] # (Auto) 0.54 Eos # (Auto) 0.04 Baso # (Auto) 0.04 Immature Gran # (Auto) 0.07 Sodium 133 L 133 L 134 L Potassium 6.1 H* D 5.4 H 4.7 Chloride 114 H 112 H 111 H Carbon Dioxide 16 L 19 L 21 Anion Gap 3 2 L 2 L BUN 14 12 10 Creatinine 1.39 H 1.49 H 1.22 H Est Cr Clr Drug Dosing 29.6 27.6 33.8 eGFR 41.59 38.26 48.64 BUN/Creatinine Ratio 10.1 8.1 L 8.2 L Glucose 99 86 69 L Calcium 7.4 L 7.4 L 7.2 L PG Care Time/CCT Total # of Minutes Spent Total Time Spent with Patient: Total time spent is greater than 50% in coordination of care (as documented) at patient's floor/unit and/or counseling patient: Coding Level of Care Code 55303 INT INP/OBS CARE MIN Diagnoses Crohn's disease K50.90 Abdominal pain R10.9
--- NOTE | 2025-04-10 12:23 | Hospitalist Progress Note ---
Date of Service April 10, 2025 Assessment & Plan (1) Chest pain: Plan: 69-year-old female with past medical history significant for Crohn's disease status post bowel resection 10/2024 with 40 cm bowel removed, nutritional deficiency, history of hypokalemia, history of DVT, CKD stage III, hyperlipidemia, chronic malnutrition Presented with low blood pressure Hypotension Acute kidney injury Hypomagnesemia Patient presents with a history of chronic diarrhea, low blood pressure. Found to have MARY, electrolyte disturbances given iv fluids/ electrolytes With improvement in creatinine. Hyperkalemianoted to have serum potassium of 6.1 on 04/09/2025. likely due to use of potassium supplement. Gived Lasix 10 mg IV, calcium gluconate, Lokelma, insulin plus dextrose. potassium improved. BMP daily Acute UTIcontinue on ceftriaxone; Urine cx growing klebsiella; treat for total of 5 days Demand ischemiahigh sensitive troponin elevated on admission; denies chest pain at the time. Echo shows EF of 55-60%; mild hypokinesis of inf post wall at the base. continue on rosuvastatin and aspirin Chron's disease Status post bowel resection Ongoing diarrhea Continue budesonide Patient says has plans to start on Entyvio Follow-up with GI I discussed that patient's lower extremity edema, significant low albumin is likely due to malabsorption/recent surgery. Discussion was done with patient and patient's daughter to replete electrolytes after each diarrhea with Pedialyte. I also discussed increasing protein intake. They both verbalized understanding. Patient continues to have diarrhea; GI consulted for comanagement on 04/10 They recommended adding cholestyramine once a day to 2 times daily along with obtaining C. difficile, stool PCR. Left ankle painpatient reports left ankle pain and painful ROM of the ankle. CT was done which did not show acute fracture. Pain likely due to sprain. GERD Protonix-continue History of DVT On Eliquis-continue Hyperlipidemia On statin-continue Disposition Med/telemetry Full code Time spent evaluating patient, direct bedside care, chart review, placing orders, interpretation of diagnostic studies, discussion with consultants, patient, and family members, as well as other required patient management activities is 50 minutes Please note the above document was generated using voice recognition software. It may contain grammatical, syntax or spelling errors. Any formal questions or concerns about the content, text or information contained within the body of this dictation should be directly addressed to the provider for clarification Admission and Anticipated Discharge Date Admission Date: April 07, 2025 Subjective Patient seen and examined at bedside. Patient reports dizziness; found to have low blood pressure. 500 cc bolus ordered. Review of Systems Review of Systems: All systems reviewed & are unremarkable except as noted in Subjective Physical Exam Physical Exam: General- Not in distress Head- atraumatic Eyes- PERRL. ENT- oropharynx clear Neck- supple, no JVD. Lungs- clear to auscultation no wheezing or crackles Heart- regular rhythm; no murmur, no gallop. Abdomen- normal bowel sounds, soft, nontender, no distension Extremities- Bilateral 1+ pitting edema present; painful ROM on left ankle Neuro- alert, oriented PERRL, no facial palsy; no dysarthria; moves extremities Results & Data Results & Data Vital Signs (Past 12 Hours) Vital Signs Temp Pulse Pulse Resp BP BP Pulse Ox 04/10/25 11:16 36.7 C 71 20 134/65 98 04/10/25 08:55 86/63 L 04/10/25 07:20 86 04/10/25 07:20 36.9 C 81 18 116/69 99 04/10/25 03:46 37.0 C 77 20 118/66 97 O2 Del Method 04/10/25 11:16 Room Air 04/10/25 08:55 04/10/25 07:20 04/10/25 07:20 Room Air 04/10/25 03:46 Room Air
[2025-04-10] MEDS: CHOLESTYRAMINE LIGHT 4 GM PKT PO SCH (13:49)
--- NOTE | 2025-04-10 14:15 | Electrocardiogram Report ---
Test Reason : Blood Pressure : */* mmHG Vent. Rate : 94 BPM Atrial Rate : 94 BPM P-R Int : 112 ms QRS Dur : 62 ms QT Int : 346 ms P-R-T Axes : 44 25 6 degrees QTcB Int : 432 ms Sinus rhythm with Premature atrial complexes Low voltage QRS Borderline ECG When compared with ECG of 09-Apr-2025 05:23, Premature atrial complexes are now Present Confirmed by Alex Lagunas ([id number]) on 04/10/2025 2:14:38 PM Referred By: REFERRED SELF Confirmed By: Alxe Lagunas
--- NOTE | 2025-04-10 14:20 | Electrocardiogram Report ---
Test Reason : Blood Pressure : */* mmHG Vent. Rate : 110 BPM Atrial Rate : * BPM P-R Int : * ms QRS Dur : 62 ms QT Int : 366 ms P-R-T Axes : * 57 70 degrees QTcB Int : 495 ms Sinus rhythm with PACs and aberrancy Abnormal ECG When compared with ECG of 10-Feb-2025 13:26, Vent. rate has increased by 36 bpm Nonspecific T wave abnormality now evident in Inferior leads Nonspecific T wave abnormality now evident in Lateral leads Confirmed by Alex Lagunas ([id number]) on 04/10/2025 2:20:28 PM Referred By: REFERRED SELF Confirmed By: Alex Lagunas
--- NOTE | 2025-04-10 17:55 | Electrocardiogram Report ---
Test Reason : Blood Pressure : */* mmHG Vent. Rate : 77 BPM Atrial Rate : 77 BPM P-R Int : 116 ms QRS Dur : 68 ms QT Int : 408 ms P-R-T Axes : 37 44 9 degrees QTcB Int : 461 ms Sinus rhythm with Premature atrial complexes Low voltage QRS Borderline ECG When compared with ECG of 08-Apr-2025 05:57, Nonspecific T wave abnormality has replaced inverted T waves in Inferior leads T wave amplitude has increased in Anterior leads Confirmed by Alex Lagunas ([id number]) on 04/10/2025 5:55:45 PM Referred By: REFERRED SELF Confirmed By: Alex Lagunas
[2025-04-11 00:51] LABS: Cdiff Toxin B Gene (2yr or >) Negative Cdiff Gene (Neg)
[2025-04-11 01:20] LABS: Adenovirus F 40/41 PCR Not Detected (NotDetected); Campylobacter PCR Not Detected (NotDetected); Enteroaggregative E.coli(EAEC) Not Detected (NotDetected); Shiga-like Toxin E.coli (STEC) Not Detected (NotDetected); Vibrio species PCR Not Detected (NotDetected)
[2025-04-11 05:00] LABS: Hematocrit (blood only) 26.8 % (37.0-47.0); Hemoglobin 9.1 g/dL (12.0-16.0); Immature Granulocytes # (auto) 0.05 K/uL (0.01-0.20); Immature Granulocytes % (auto) 0.5 %; Mean Corpuscular Hemoglobin 31.9 pg (25.0-34.0); Mean Corpuscular Volume 94.0 fL (80.0-100.0); Platelet Count 258 K/uL (130-400); RDW Standard Deviation 49.8 fL (36.4-46.3); Red Blood Count 2.85 M/uL (4.20-5.40); White Blood Count 9.94 K/ul (4.8-10.8)
[2025-04-11 06:20] LABS: Anion Gap 4.0 (3-11); Blood Urea Nitrogen 9.0 mg/dl (6-23); Calcium 6.9 mg/dl (8.6-10.3); Carbon Dioxide 17.0 mmol/L (21-32); Chloride 113.0 mmol/L (98-107); Creatinine Clr Calc Pharmacy 33.2 ml/min; Glucose 72.0 mg/dl (70-99(Fasting)); Potassium 4.0 mmol/L (3.5-5.1); Sodium 134.0 mmol/L (136-145)
[2025-04-11 07:58] VITALS: TEMP 98.2
--- NOTE | 2025-04-11 11:01 | Communication Note ---
Date of Service: April 11, 2025 Patient is a 69 yo female with Crohn's Disease. She had negative stool PCR yesterday. Cholestyramine was offered. She feels she is at her baseline. GI will sign off at this time. Ultimately, she needs outpatient follow-up with her GI team for long-term med management planning.
[2025-04-11 11:16] VITALS: BP 123/76; RESP 18; O2SAT 100
--- NOTE | 2025-04-11 15:20 | Discharge Summary ---
Date of Service April 11, 2025 Admission HPI Per Admitting Provider 69-year-old female with past medical history significant for Crohn's disease status post bowel resection 10/2024 with 40 cm bowel removed, nutritional deficiency, history of hypokalemia, history of DVT, CKD stage III, hyperlipidemia, chronic malnutrition presents with dizziness and chest pain. Patient states since morning she was feeling lightheaded and blood pressure was low. In the evening at 7 PM she had 1 moment of sharp chest pain which prompted her to come to the ER. Chest pain went away immediately. In the ER she was initially tachycardic. She was hypokalemic and hypomagnesia and MARY. Patient says she has chronic diarrhea from Crohn's disease. Denies any blood in the stools. Denies any nausea or vomiting. States appetite is okay. Denies any abdominal pain. No chest pain currently. No shortness of breath. No headache. No runny nose or sore throat. No fevers. Currently hemodynamics are okay. Past medical history. As mentioned above. Past surgical history. Laparoscopic left oophorectomy. History of colectomy in late . Bowel resection in 2024. EGD. Colonoscopy tonsillectomy. Social history. Smokes half pack of cigarettes daily. Drinks alcohol. No drug use. Family history. Father had CAD. Maternal aunt had breast cancer. Mother had arthritis. Admission Exam Per Admitting Provider General- Not in distress Head- atraumatic Eyes- PERRL. ENT- oropharynx clear Neck- supple, no JVD. Lungs- clear to auscultation no wheezing or crackles Heart- regular rhythm; no murmur, no gallop. Abdomen- normal bowel sounds, soft, nontender, no distension Extremities- no pretibial edema, no erythema seen Neuro- alert, oriented PERRL, no facial palsy; no dysarthria; moves extremities Principal Diagnosis Hypotension Acute kidney injury Hypomagnesemia Acute UTI Hyperkalemia Discharge Exam General- Not in distress Head- atraumatic Eyes- PERRL. ENT- oropharynx clear Neck- supple, no JVD. Lungs- clear to auscultation no wheezing or crackles Heart- regular rhythm; no murmur, no gallop. Abdomen- normal bowel sounds, soft, nontender, no distension Extremities- Bilateral 1+ pitting edema present; painful ROM on left ankle Neuro- alert, oriented PERRL, no facial palsy; no dysarthria; moves extremities Discharge Data Allergies Allergy/AdvReac Type Severity Reaction Status Date / Time hydromorphone AdvReac Intermediate shaky, Verified 04/06/25 22:32 cold sweats, "loopy-like" Consultations 04/06/25 22:32 ED Decision to Admit Stat 04/10/25 08:55 Consult Gastroenterology Routine Ordered Studies 04/09/25 09:25 CT ankle LT wo con Routine Hospital Course (1) Chest pain: Per prior attending with addendum: 69-year-old female with past medical history significant for Crohn's disease sta tus post bowel resection 10/2024 with 40 cm bowel removed, nutritional deficiency, history of hypokalemia, history of DVT, CKD stage III, hyperlipidemia, chronic malnutrition Presented with low blood pressure Hypotension Acute kidney injury Hypomagnesemia Patient presents with a history of chronic diarrhea, low blood pressure. Found to have MARY, electrolyte disturbances given iv fluids/ electrolytes With improvement in creatinine. Hyperkalemianoted to have serum potassium of 6.1 on 04/09/2025. likely due to use of potassium supplement. Gived Lasix 10 mg IV, calcium gluconate, Lokelma, insulin plus dextrose. potassium improved. BMP daily Acute UTIcontinue on ceftriaxone; Urine cx growing klebsiella; treat for total of 5 days Demand ischemiahigh sensitive troponin elevated on admission; denies chest pain at the time. Echo shows EF of 55-60%; mild hypokinesis of inf post wall at the base. continue on rosuvastatin and aspirin Chron's disease Status post bowel resection Ongoing diarrhea Continue budesonide Patient says has plans to start on Entyvio Follow-up with GI I discussed that patient's lower extremity edema, significant low albumin is likely due to malabsorption/recent surgery. Discussion was done with patient and patient's daughter to replete electrolytes after each diarrhea with Pedialyte. I also discussed increasing protein intake. They both verbalized understanding. Patient continues to have diarrhea; GI consulted for comanagement on 04/10 They recommended adding cholestyramine once a day to 2 times daily along with obtaining C. difficile, stool PCR. Left ankle painpatient reports left ankle pain and painful ROM of the ankle. CT was done which did not show acute fracture. Pain likely due to sprain. GERD Protonix-continue History of DVT On Eliquis-continue Hyperlipidemia On statin-continue Disposition Med/telemetry Full code Addendum 04/11/2025:Patient was seen and examined at bedside as a follow-up of electrolyte abnormalities, acute kidney injury, acute UTI. Patient has completed 5 days of antibiotic treatment for UTI. Patient reports her bowel movements are now back to her baseline. Stool PCR and C. difficile are negative. GI has evaluated the patient and okay for discharge. Patient advised to closely follow-up with her outpatient GI provider upon discharge. Patient is being discharged with following instructions at the point of discharge: Follow-up with your primary care physician within a week time and likely you will need labs CBC/CMP/magnesium/phosphorus. For ongoing GI issues, follow-up with outpatient GI provider closely. GI physician evaluated you while inpatient, cholestyramine has been added. Take your medications as prescribed. Please make sure that you are able to get your medications today by calling your pharmacy before you leave the hospital so that your treatment continuity is not broken. Please note the above document was generated using voice recognition software. It may contain grammatical, syntax or spelling errors. Any formal questions or concerns about the content, text or information contained within the body of this dictation should be directly addressed to the provider for clarification Home Health Attestation I certify that this patient is under my care and that I, or a physicians front office assistant working with me, had a face to-face encounter that meets the home health psrx-ay-olge encounter requirements with this patient. The encounter with the patient was in whole, or in part, for the following medical condition, which is the primary reason for home health care (list medical condition): I certify that, based on my findings, the following services are medically necessary home health services: My clinical findings support the need for the above services because: Further, I certify that my clinical findings support that this patient is homebound (i.e. absences from home require considerable and taxing effort and are for medical reasons or restorationism services or infrequently or of short duration when for other reasons) because: Certification for Home Health Services: Based on the above findings, I certify that this patient is confined to the home and needs intermittent shelter care, physical therapy and/or speech therapy or continues to need occupational therapy. The patient is under my care, and I have initiated the establishment of the plan of care. This patient will be followed by a physician who will periodically review the plan of care. Total Time Total Time Spent Total Time Spent (In Minutes): 40 Discharge Plan Discharge Items Patient Disposition: Home - Home Health Services Reason For Visit: DIZZINESS, HYPOKALEMIA, MARY Discharge Diagnosis: Hypotension Acute kidney injury Hypomagnesemia Acute UTI Hyperkalemia Condition on Discharge: Good Activity: Resume your previous activity Non-emergency contact: Primary Care Provider Call non-emergency contact if: you have any medication questions and your symptoms worsen Follow-up/Referrals: Henry Griffin MD [Primary Care Provider] - (Date & Time 04/14/2025 9:40 AM Provider: Ranjit Horan MD Family Medicine [facility] ) Diet: Heart Healthy Addtl Attending Provider Instructions: Follow-up with your primary care physician within a week time and likely you will need labs CBC/CMP/magnesium/phosphorus. For ongoing GI issues, follow-up with outpatient GI provider closely. GI physician evaluated you while inpatient, cholestyramine has been added. Take your medications as prescribed. Please make sure that you are able to get your medications today by calling your pharmacy before you leave the hospital so that your treatment continuity is not broken. Pending Studies at Discharge: No Stand-Alone Forms: My [facility] [employer], Smoking Cessation Medications and DC Order Prescriptions: New Prevalite 4 gram Powder In Packet 4 g PO BID@1000,2200 Qty: 42 0RF Continued Multiple Vitamin-Minerals Tablet 1 tab PO QAM potassium chloride 20 mEq tablet,ER particles/crystals 20 meq PO QAM rosuvastatin 20 mg tablet 20 mg PO HS Eliquis 5 mg tablet 5 mg PO BID Qty: 74 0RF aspirin 81 mg Tablet,Delayed Release (Dr/Ec) 81 mg PO DAILY budesonide 3 mg capsule,delayed,extend.release 3 mg PO QAM pantoprazole [Protonix] 40 mg tablet,delayed release (DR/EC) 40 mg PO QAM Discharge Orders: Discharge Order (Routine); Ordered 04/11/25 Ordered By: Shauna Anguiano Admission Data Admit Date/Time: 04/07/25 00:29 Attending Provider: Shauna Anguiano Admit Provider: Palepu,Ankit P. Primary Care Provider: Henry Griffin Other Providers: Ankit Lynn; Watson Lopez I
[2025-04-11 16:11] VITALS: PULSE 72
== END 2025-04-11 16:02 | disposition home health service (06) | DRG 683 ==
LOC: ED 20:16 → SUATTDRO 04-07 00:29 → EDINP 04-07 00:29 → 2W 04-07 04:37